=== PATIENT | male | born 1955 | race Caucasian/White ===

== ENCOUNTER 2019-09-08 10:29 | Inpatient (IN) ==
--- NOTE | 2019-09-05 22:28 | PAT Medication Instructions ---
Medication Instructions Date of Service September 05, 2019 Home Medications aspirin 81 mg tablet,delayed release 81 mg PO HS clopidogrel 75 mg tablet 75 mg PO QAM gabapentin 800 mg tablet 800 mg PO UD lisinopril 10 mg tablet 10 mg PO QAM metformin 1,000 mg tablet 1,000 mg PO BID omega-3 acid ethyl esters 1 gram capsule 2 cap PO BID atenolol 25 mg PO HS diclofenac sodium 50 mg PO QAM ASK your surgeon for instructions diclofenac sodium 50 mg PO QAM ASK your prescriber and surgeon aspirin 81 mg tablet,delayed release 81 mg PO HS clopidogrel 75 mg tablet 75 mg PO QAM STOP taking 2 weeks before surgery If surgery is within 2 weeks, stop taking as soon as possible. omega-3 acid ethyl esters 1 gram capsule 2 cap PO BID DO NOT take the morning of surgery lisinopril 10 mg tablet 10 mg PO QAM metformin 1,000 mg tablet 1,000 mg PO BID Take morning of surgery With a small sip of water, OTHERWISE NOTHING TO EAT OR DRINK AFTER MIDNIGHT: gabapentin 800 mg tablet 800 mg PO UD (if needed) Take evening before surgery gabapentin 800 mg tablet 800 mg PO UD (if needed) metformin 1,000 mg tablet 1,000 mg PO BID atenolol 25 mg PO HS Other Notes If you have any questions please call us at [phone] or [phone] or [phone] or [phone]
--- NOTE | 2019-09-06 09:14 | Anesthesiology Consultation ---
Date of Service September 06, 2019 Assessment & Plan (1) Encounter for pre-operative examination: - Recent cardiac stent: Patient s/p cardiac stent 08/02/2019 (NSTEMI). Patient with known significant CAD (hx cardiac stents x 12 total/multiple angioplastie s). Patient scheduled for Radical Retropubic Prostatectomy for prostate cancer. Patient aware of the increased risks associated with surgery given the recent cardiac stent placement and wishes to proceed with surgery as scheduled. Received cardiac clearance. Patient made aware that risks will further be discussed AM DOS. Reviewed with rupa Patel to proceed with given surgery as long as patient accepting of these increased risks. Surgeon made aware of the above. - Cardiology: 09/01/19: "considered cleared from a cardiac stand point [sic] for the upcoming procedure. Hold Plavix 5 days prior to procedure [already on hold as of PAT visit 09/06/19]." Patient remaining on ASA perioperatively. Chart Review Chart Review: Acceptable Risk for Surgery and Patient seen in Pre Admission Testing Teaching & Discussion Pre-Anesthesia Teaching/Discussion Notes: Instructed NPO after midnight before surgery,except medications with 15 cc of water. Medication instructions pr ovided according to the PAT guidelines. History Surgery Operation Date: 09/08/19 12:10 Proposed Procedures p Robotic Laparoscopic Assisted Radical Retropubic Prostatectomy, Possible Open, Possible Pelvic Lymph Node Dissection, Possible Suprapubic Tube Placement - Randy Martinez MD Height/Weight Height: 5 ft 11 in Weight: 107.8 kg Allergies Allergy/AdvReac Type Severity Reaction Status Date / Time Sulfa (Sulfonamide Allergy Mild RASH Verified 09/05/19 14:03 Antibiotics) Medications Home Medications Medication Instructions Recorded Confirmed Last Taken aspirin 81 mg tablet,delayed 81 mg PO HS 07/20/19 09/05/19 Unknown release clopidogrel 75 mg tablet 75 mg PO QAM 08/16/19 09/05/19 Unknown gabapentin 800 mg tablet 800 mg PO UD tab 08/16/19 09/05/19 Unknown lisinopril 10 mg tablet 10 mg PO QAM 08/16/19 09/05/19 Unknown metformin 1,000 mg tablet 1,000 mg PO BID 08/16/19 09/05/19 Unknown omega-3 acid ethyl esters 1 gram 2 cap PO BID cap 08/16/19 09/05/19 Unknown capsule atenolol 25 mg PO HS 09/05/19 09/05/19 Unknown diclofenac sodium 50 mg PO QAM 09/05/19 09/05/19 Unknown Past Medical History Medical History Coronary artery disease mutliple cardiac stents x 12 (most recent EARL to first obtuse marginal branch 08/02/19) Diabetes Diabetic neuropathy Hyperlipidemia Hypertension Myocardial Infarction 2005, indications for cardiac cath 08/02/19 notes "NSTEMI" Obesity Osteoarthritis Prostate cancer Exercise / Class Metabolic Activity II 4-5 Yardwork/Stairs/Walk up hill Past Family History Family History Mother , at 91yo Skin cancer History of heart valve replacement H/O heart artery stent Coronary heart disease Diabetes Father , 87yo Prostate cancer Coronary heart disease Myocardial infarction Hypertension Sister Breast cancer Son No problems noted. Son No problems noted. Son No problems noted. Grandfather (Paternal) Prostate cancer Family/Other , Paternal uncle Prostate cancer Family/Other , Paternal uncle Prostate cancer Grandfather (Maternal) Diabetes Past Surgical History Surgical History Fusion of spine L3-4 H/O eye surgery Left eye detached retina and lacerated left cornea all due to an injury H/O hand surgery LEFT SMALL FINGER TENDON REPAIR H/O heart artery stent x12 total + multiple angioplasties; most recent angioplasty and EARL x1 to first obtuse marginal branch 08/02/19 H/O umbilical hernia repair UMBILICAL History of tonsillectomy History of tooth extraction Past Anesthesia History No Hx of Anesthesia Complications and No Family Hx of Anesthesia Complications History of PONV No Hx of PONV and No Hx of Motion Sickness Social History Smoking Status: Never smoker Do You Dip or Chew Tobacco: No Hx Alcohol Use: No Hx Substance Use: No substance use type: does not use Review of Systems Patient denies chest pain, shortness of breath, dyspnea on exertion, reflux, cough, wheezing, palpitations. Physical Exam Vital Signs VITALS BP 157/96 (manual recheck 138/92) P 65 TEMP 98.4 SP02 96%RA RESP 16 PHYSICAL Full neck and c-spine range of motion. Full TMJ range of motion. TMD 3 finger breaths Mallampati Score 3 Dentition: missing side tooth, upper partial Lungs: clear throughout to auscultation Cardiac: regular rate and rhythm, no murmurs noted Spine: normal Carotid arteries: negative bruit Extremities: no edema Testing Laboratory Results 09/06/19 09:40 12 09:40 Hemoglobin A1c 7.7 % (4.5-5.6) H 12 09:40 Urine Color Yellow 12 09:40 Urine Appearance Clear (Clear) 09/06/19 09:40 Urine pH 5.0 (4.5-7.5) 09/06/19 09:40 Ur Specific [place] 1.021 (1.000-1.030) 09/06/19 09:40 Urine Protein Trace (Negative) H 09/06/19 09:40 Urine Glucose (UA) Negative (Negative) 09/06/19 09:40 Urine Ketones Negative (Negative) 09/06/19 09:40 Urine Nitrite Negative (Negative) 09/06/19 09:40 Ur Leukocyte Esterase Negative (Negative) 09/06/19 09:40 Urine WBC (Auto) 0 /hpf (0-5) 09/06/19 09:40 Urine RBC (Auto) 0-4 /hpf (0-4) 09/06/19 09:40 U Hyaline Cast (Auto) 0 /lpf (0-5) 09/06/19 09:40 U Epithel Cells (Auto) 0-5 /lpf (0-5) 09/06/19 09:40 Urine Bacteria (Auto) Negative (Negative) 09/06/19 09:40 Blood Type A Positive 09/06/19 09:40 Antibody Screen NEGATIVE 09/06/19 09:40 Electrocardiogram Date: 09/06/19 Findings: + NSR @ (64) Chest X-Ray Date: 08/02/19 Findings: + NAD Stress Test Date: 04/24/17 Type: exercise LVEF 70%. No significant ischemia/infarction. SPECT perfusion images WNL. 87% MPHR. Cardiac Catheterization Date: 08/02/19 Acute occlusion of superior branch and first obtuse marginal branch of LCx. Patient LAD, LCx, RCA stent. Chronic total occlusion RPDA branch of RCA. LVEF 55%. *Successful angioplasty and stenting of acute occlusion of the first obtuse marginal branch with EARL*
[2019-09-06 10:54] LABS: Basophils # (auto) 0.01 K/uL (0-0.2); Basophils % (auto) 0.2 %; Hematocrit (blood only) 40.7 % (42-52); Hemoglobin 14.1 g/dL (14.0-18.0); Immature Granulocytes # (auto) 0.01 K/uL (0.00-0.02); Immature Granulocytes % (auto) 0.2 %; Lymphocytes # (auto) 1.56 K/uL (1.2-3.4); Lymphocytes % (auto) 30.8 %; Mean Corpuscular Hemoglobin 31.1 pg (25-34); Mean Corpuscular Hgb Conc 34.6 g/dL (32-36); Mean Corpuscular Volume 89.6 fL (80-100); Mean Platelet Volume 9.8 fL (7.4-10.4); Monocytes # (auto) 0.48 K/uL (0.11-0.59); Monocytes % (auto) 9.5 %; Neutrophils # (auto) 2.91 K/uL (1.4-6.5); Neutrophils % (auto) 57.3 %; Platelet Count 188 K/uL (130-400); RDW Coefficient of Variation 13.3 % (11.5-14.5); RDW Standard Deviation 43.6 fL (36.4-46.3); Red Blood Count 4.54 M/uL (4.7-6.1); White Blood Count 5.07 K/uL (4.8-10.8)
[2019-09-06 11:03] LABS: BUN Creatinine Ratio 13.9 (10-20); Calcium 9.1 mg/dl (8.5-10.1); Creatinine Clr Calc Pharmacy 99.2 ml/min; Est GFR (African American) 98.9; Est GFR (Non-African American) 85.3; Potassium 4.4 mmol/L (3.5-5.1)
[2019-09-06 11:13] LABS: Appearance Urine Clear (Clear); Bacteria Urine Automated Negative (Negative); Bilirubin Urine Negative (Negative); Blood Urine Trace (Negative); Cast Urine Automated 0 /lpf (0-5); Color Urine Yellow; Epithelial Cell Urine Auto 0-5 /lpf (0-5); Glucose Urine UA Negative (Negative); Ketones Urine Negative (Negative); Leukocyte Esterase Urine Negative (Negative); Nitrite Urine Negative (Negative); Protein Urine Trace (Negative); RBC Urine Automated 0-4 /hpf (0-4); Specific Gravity Urine 1.021 (1.000-1.030); Urobilinogen Urine Negative (Negative); WBC Urine Automated 0 /hpf (0-5)
[2019-09-06 11:32] LABS: Estimated Average Glucose 174 mg/dl; Hemoglobin A1C 7.7 % (4.5-5.6)
[~2019-09-08 10:29] MED LIST: CEFAZOLIN 2000MG 2,000 MG/15 ML SYR IV SCH; HEPARIN SOD 5,000 UNIT/0.5 ML VIAL SC SCH; LR 15ML/HR IV SCH
[2019-09-08] MEDS ORDERED: fentaNYL citrate 100 MCG/2 ML VIAL ONE ×2 (11:12→14:52)
[2019-09-08] MEDS ORDERED: MIDAZOLAM HCL 1 MG/ML 2ML VIAL ONE (11:12)
[2019-09-08] MEDS ORDERED: ACETAMINOPHEN 1000 MG/100 ML IV IV ONE (11:21)
--- NOTE | 2019-09-08 12:38 | History & Physical Bridge Note ---
Date of Service September 08, 2019 History & Physical Bridge Note I have examined the patient, reviewed the History & Physical and in the interval since the performance of the History & Physical I have noted the following changes of clinical significance: no changes noted
[2019-09-08] MEDS ORDERED: BUPIVACAINE 0.5 % 5 MG/1 ML MPF 30ML VIAL ONE (12:51)
[2019-09-08] MEDS ORDERED: DEXAMETHASONE SOD INJ 4 MG/ML VIAL IV PRN (12:57)
[2019-09-08] MEDS ORDERED: FLUMAZENIL 0.1 MG/1 ML 10 ML VIAL IV PRN (12:57)
[2019-09-08] MEDS ORDERED: ONDANSETRON INJ 2 MG/ML 2 ML VIAL IV PRN ×2 (12:57→19:14)
[2019-09-08] MEDS ORDERED: METOCLOPRAMIDE HCL INJ 5 MG/ML 2 ML VIAL IV PRN (12:57)
[2019-09-08] MEDS ORDERED: fentaNYL citrate 100 MCG/2 ML VIAL IV PRN (12:57)
[2019-09-08] MEDS ORDERED: ePHEDrine sulfate 50 MG/ML AMP IV PRN (12:57)
[2019-09-08] MEDS ORDERED: HYDROmorphone INJ 2 MG/ML SYR/VIAL IV PRN (12:57)
[2019-09-08] MEDS ORDERED: ATROPINE SULFATE 0.1 MG/ML 10ML SYR IV PRN (12:57)
[2019-09-08] MEDS ORDERED: CEFAZOLIN 250 MG/ML 1 GM VIAL ONE (13:53)
[2019-09-08] MEDS ORDERED: HYDROmorphone INJ 2 MG/ML SYR/VIAL ONE (14:06)
[2019-09-08] MEDS ORDERED: ROCURONIUM BROMIDE 10 MG/ML 5 ML VIAL ONE ×4 (14:09→16:16)
[2019-09-08] MEDS ORDERED: ePHEDrine sulfate 50 MG/ML SYR ONE (14:09)
[2019-09-08] MEDS ORDERED: PROPOFOL IV EMULSION 10 MG/ML 20 ML VIAL IV ONE (14:09)
[2019-09-08] MEDS ORDERED: DEXAMETHASONE SOD INJ 4 MG/ML VIAL ONE (14:09)
[2019-09-08] MEDS ORDERED: LIDOCAINE HCL 2% 2 ML VIAL/AMP(20MG/ML) INFIL ONE (14:09)
[2019-09-08] MEDS ORDERED: PHENYLEPHRINE 100MCG/ML 5ML SYR ONE (14:09)
[2019-09-08] MEDS ORDERED: NEOSTIGMINE METHYLSULFATE 5 MG/5 ML SYR ONE (14:09)
[2019-09-08] MEDS ORDERED: GLYCOPYRROLATE 0.2 MG/ML VIAL ONE (14:09)
[2019-09-08] MEDS ORDERED: ONDANSETRON INJ 2 MG/ML 2 ML VIAL ONE (14:09)
[2019-09-08] MEDS ORDERED: LARYING-O-JET KIT (LTA) ONE (14:09)
[2019-09-08] MEDS ORDERED: FLOSEAL HEMOSTATIC MATRIX 10ML TOP ONE (17:13)
--- NOTE | 2019-09-08 17:58 | Operative Report ---
PG Post Operative Report Pre & Post Diagnosis Operation Date: 09/08/19 12:10 Pre-Op Diagnosis: Prostate Cancer Post-Op Diagnosis: Prostate Cancer I identified the patient and participated in the time-out.: Yes Procedure Operation Date: 09/08/19 12:10 Actual Procedures p Robotic Laparoscopic Assisted Radical Retropubic Prostatectomy, Bilateral Pelvic Lymph Node Dissection, Suprapubic Tube Placement(Not Applicable) - Randy Martinez MD Surgeon Randy Martinez MD Door Puller YARELY FENTON Estimated Blood Loss 250 Findings Consistent with Post-Op Diagnosis Specimens Prostate + SV, periprostatic fat, L and R pelvic nodes Description of Procedure See above I attest to the content of the Intraoperative Record and any orders documented therein. Any exceptions are noted below.
[2019-09-08 18:38] LABS: Basophils # (auto) 0.01 K/uL (0-0.2); Basophils % (auto) 0.1 %; Eosinophils # (auto) 0.01 K/uL (0-0.5); Eosinophils % (auto) 0.1 %; Hematocrit (blood only) 37.2 % (42-52); Hemoglobin 12.9 g/dL (14.0-18.0); Immature Granulocytes # (auto) 0.03 K/uL (0.00-0.02); Immature Granulocytes % (auto) 0.3 %; Lymphocytes # (auto) 1.27 K/uL (1.2-3.4); Lymphocytes % (auto) 12.6 %; Mean Corpuscular Hemoglobin 30.6 pg (25-34); Mean Corpuscular Volume 88.4 fL (80-100); Mean Platelet Volume 9.6 fL (7.4-10.4); Monocytes # (auto) 0.28 K/uL (0.11-0.59); Monocytes % (auto) 2.8 %; Neutrophils # (auto) 8.46 K/uL (1.4-6.5); Neutrophils % (auto) 84.1 %; Platelet Count 161 K/uL (130-400); RDW Coefficient of Variation 13.5 % (11.5-14.5); RDW Standard Deviation 43.4 fL (36.4-46.3); Red Blood Count 4.21 M/uL (4.7-6.1); White Blood Count 10.06 K/uL (4.8-10.8)
--- NOTE | 2019-09-08 18:39 | Anesthesiology Progress Note ---
Date of Service September 08, 2019 Anesthesia Post Procedure Vital Signs Vital Signs: Temp Pulse Pulse Resp BP Pulse Ox 09/08/19 18:30 63 16 139/81 96 09/08/19 18:20 60 23 123/66 99 09/08/19 18:10 71 13 116/76 99 09/08/19 18:00 36.4 C L 80 17 130/83 93 09/08/19 10:48 37.0 C 70 18 182/104 H 97 Transfer of Care Handoff Completed per policy Notes Mental Status: alert / awake / arousable Patient Amnestic to Procedure: Yes Nausea / Vomiting: adequately controlled Pain: adequately controlled Airway Patency, RR, SpO2: stable & adequate BP & HR: stable & adequate Hydration State: stable & adequate Anesthetic Complications: no major complications apparent and Pt Satisfied with anesthetic care Notes: The patient is awake and comfortable. His vitals are stable.
[2019-09-08 18:43] LABS: Mean Corpuscular Hgb Conc 34.7 g/dL (32-36)
[2019-09-08 18:54] LABS: BUN Creatinine Ratio 15.7 (10-20); Creatinine Clr Calc Pharmacy 95.5 ml/min; Est GFR (African American) 94.1; Est GFR (Non-African American) 81.2; Potassium 4.1 mmol/L (3.5-5.1)
[2019-09-08] MEDS ORDERED: HYDROmorphone INJ 1 MG/ML SYRINGE IV PRN ×2 (19:14)
[2019-09-08] MEDS ORDERED: OXYCODONE HCL IR 5 MG TAB (IMMEDIATE RELEASE) PO PRN (19:14)
[2019-09-08] MEDS: ACETAMINOPHEN 1,000 MG/100 ML VIAL IV SCH (20:23)
[2019-09-08] MEDS: LACTATED RINGER'S 1,000 ML IV SCH (20:25)
[2019-09-08] MEDS: CEFAZOLIN 2000MG 2,000 MG/15 ML SYR IV SCH (20:29)
[2019-09-08] MEDS: HEPARIN SOD 5,000 UNIT/0.5 ML VIAL SQ SCH (20:33)
[2019-09-08] MEDS ORDERED: PHARMACY GLYCEMIC MGMT CONSULT PRN (21:41)
[2019-09-08] MEDS ORDERED: GLUCOSE 10 TABS/TUBE PO PRN (21:45)
[2019-09-08] MEDS ORDERED: GLUCOSE 40% GEL 15 GM TUBE PO PRN (21:45)
[2019-09-08] MEDS ORDERED: GLUCAGON FOR INJ 1 MG VIAL SQ PRN (21:45)
[2019-09-08] MEDS ORDERED: LANTUS PER UNIT CHARGE SQ ONE (21:45)
[2019-09-08] MEDS ORDERED: CARBOHYDRATES FOR HYPOGLYCEMIA PO PRN (21:45)
[2019-09-08] MEDS ORDERED: DEXTROSE 50% 50 ML SYRINGE IV PRN (21:45)
[2019-09-08] MEDS ORDERED: ATENOLOL 25 MG TABLET PO SCH (22:00)
[2019-09-08] MEDS ORDERED: ASPIRIN 81 MG ECTAB PO SCH (22:00)
[2019-09-08] MEDS: GABAPENTIN 800 MG TAB PO SCH (22:20)
[2019-09-08] MEDS: INSULIN ASPART 100 UNITS/ML 3 ML PEN SC SCH (22:24)
[2019-09-08] MEDS: OXYCODONE HCL IR 5 MG TAB (IMMEDIATE RELEASE) PO PRN (22:56)
[2019-09-09] MEDS ORDERED: INSULIN ASPART 100 UNITS/ML 3 ML PEN SC SCH
[2019-09-09] MEDS: LACTATED RINGER'S 1,000 ML IV SCH ×2 (01:00→09:41)
[2019-09-09] MEDS: ACETAMINOPHEN 1,000 MG/100 ML VIAL IV SCH ×2 (03:42→11:21)
[2019-09-09] MEDS: CEFAZOLIN 2000MG 2,000 MG/15 ML SYR IV SCH (03:44)
[2019-09-09 08:01] LABS: Hematocrit (blood only) 34.1 % (42-52); Hemoglobin 11.6 g/dL (14.0-18.0); Immature Granulocytes # (auto) 0.02 K/uL (0.00-0.02); Immature Granulocytes % (auto) 0.2 %; Lymphocytes # (auto) 1.46 K/uL (1.2-3.4); Mean Corpuscular Hemoglobin 30.3 pg (25-34); Mean Platelet Volume 9.5 fL (7.4-10.4); Monocytes # (auto) 0.73 K/uL (0.11-0.59); Monocytes % (auto) 8.5 %; Neutrophils # (auto) 6.39 K/uL (1.4-6.5); Neutrophils % (auto) 74.3 %; Platelet Count 154 K/uL (130-400); RDW Coefficient of Variation 13.9 % (11.5-14.5); RDW Standard Deviation 45.1 fL (36.4-46.3); Red Blood Count 3.83 M/uL (4.7-6.1)
[2019-09-09] MEDS: OXYCODONE HCL IR 5 MG TAB (IMMEDIATE RELEASE) PO PRN ×3 (08:09→18:39)
--- NOTE | 2019-09-09 08:12 | Anesthesiology Progress Note ---
Date of Service September 09, 2019 Anesthesia Post Procedure Vital Signs Vital Signs: Temp Pulse Pulse Resp BP Pulse Ox 09/09/19 07:16 36.3 C L 66 18 117/72 94 09/09/19 05:18 98 09/09/19 04:45 36.7 C 72 16 103/65 99 09/08/19 23:19 36.8 C 79 15 127/75 96 09/08/19 22:19 78 119/73 09/08/19 21:55 36.7 C 74 16 108/70 94 09/08/19 20:56 36.7 C 72 16 120/74 94 09/08/19 20:15 36.9 C 69 138/90 95 09/08/19 19:33 36.5 C 60 16 122/76 95 09/08/19 19:00 36.8 C 68 16 127/86 95 09/08/19 18:50 65 12 135/73 100 09/08/19 18:40 36.6 C 69 14 139/86 97 09/08/19 18:30 63 16 139/81 96 09/08/19 18:20 60 23 123/66 99 09/08/19 18:10 71 13 116/76 99 09/08/19 18:00 36.4 C L 80 17 130/83 93 09/08/19 10:48 37.0 C 70 18 182/104 H 97 Pain Intensity Perineal: Pain Intensity: 3 Notes Mental Status: alert / awake / arousable and participated in evaluation Patient Amnestic to Procedure: Yes Nausea / Vomiting: adequately controlled Pain: adequately controlled Airway Patency, RR, SpO2: stable & adequate BP & HR: stable & adequate Hydration State: stable & adequate Anesthetic Complications: no major complications apparent and Pt Satisfied with anesthetic care
[2019-09-09 08:37] LABS: Calcium 8.4 mg/dl (8.5-10.1); Creatinine Clr Calc Pharmacy 94.2 ml/min; Est GFR (African American) 92.9; Est GFR (Non-African American) 80.2; Potassium 3.7 mmol/L (3.5-5.1)
[2019-09-09] MEDS ORDERED: GABAPENTIN 800 MG TAB PO SCH (09:00)
[2019-09-09] MEDS ORDERED: lisinopriL 10 MG TAB PO SCH (09:00)
[2019-09-09] MEDS: INSULIN ASPART 100 UNITS/ML 3 ML PEN SC SCH ×3 (09:20→18:27)
[2019-09-09] MEDS: HEPARIN SOD 5,000 UNIT/0.5 ML VIAL SQ SCH (09:22)
--- NOTE | 2019-09-09 09:51 | Urology Progress Note ---
Date of Service September 09, 2019 Assessment & Plan (1) Prostate cancer: A/P 64 yo male with CAP s/p RALRP, BPLND, SPT POD#1. Doing well. Advance diet and activity. Wishes to keep SPT - will DC urethral dillon today. Likely DC KATE and DC home later today. DC instructions reviewed, visits confirmed. Subjective 64 yo male POD#1 s/p RALRP, BPLND, SPT placement. He is in room with , resting comfortably. Notes he was ambulating in halls yesterday, nicholas clears without issue, comfortable, no specific c/o. Good SPT output, urine light pink. Intraop findings reviewed. Review of Systems Constitutional: no fever and no chills Eyes: no diplopia Ear, Nose, Mouth, Throat: no ear trauma Respiratory: no hemoptysis Cardiovascular: no chest pain Gastrointestinal: no nausea and no vomiting Integumentary: no acne and no boil Neurologic: no paralysis Psychiatric: no hopelessness Allergy / Immunological: no tongue swelling Physical Exam Constitutional: well developed and well nourished; no acute distress Eyes: eyes not dysmorphic ENMT: Ears: no external ear abnormality Neck: trachea midline; no anterior neck swelling Respiratory: no respiratory distress and does not use accessory muscles Cardiovascular: Vessels: radial pulses present Gastrointestinal (Abdomen): Inspection/Auscultation: abdomen not distended Percussion/Palpation: abdomen soft; abdomen nontender inc c/d/i with Dermabond, SPT and KATE in place Musculoskeletal: Head/Neck/Chest: normocephalic and neck supple Skin: normal turgor Neurologic: awake; not obtunded Psychiatric: Orientation: oriented x 3 Lymphatic: no lymphadenopathy Results & Data Vital Signs (Past 12 Hours) Vital Signs Temp Pulse Resp BP Pulse Ox 09/09/19 07:16 36.3 C L 66 18 117/72 94 09/09/19 05:18 98 09/09/19 04:45 36.7 C 72 16 103/65 99 09/08/19 23:19 36.8 C 79 15 127/75 96 09/08/19 22:19 78 119/73 09/08/19 21:55 36.7 C 74 16 108/70 94 Laboratory Results Laboratory Results - last 48 hr 09/08/19 09/08/19 09/08/19 11:46 18:05 18:19 WBC 10.06 RBC 4.21 L Hgb 12.9 L Hct 37.2 L MCV 88.4 MCH 30.6 MCHC 34.7 RDW Std Deviation 43.4 RDW Coeff of Trace 13.5 Plt Count 161 MPV 9.6 Immature Gran % (Auto) 0.3 Neut % (Auto) 84.1 Lymph % (Auto) 12.6 Early % (Auto) 2.8 Eos % (Auto) 0.1 Baso % (Auto) 0.1 Immature Gran # (Auto) 0.03 H Neut # (Auto) 8.46 H Lymph # (Auto) 1.27 Early # (Auto) 0.28 Eos # (Auto) 0.01 Baso # (Auto) 0.01 Sodium Potassium Chloride Carbon Dioxide Anion Gap BUN Creatinine Est Cr Clr Drug Dosing Est GFR ( Amer) Est GFR (Non-Af Amer) BUN/Creatinine Ratio Glucose POC Glucose 115 H 182 H Calcium 09/08/19 09/08/19 09/09/19 18:19 22:05 00:08 WBC RBC Hgb Hct MCV MCH MCHC RDW Std Deviation RDW Coeff of Trace Plt Count MPV Immature Gran % (Auto) Neut % (Auto) Lymph % (Auto) Early % (Auto) Eos % (Auto) Baso % (Auto) Immature Gran # (Auto) Neut # (Auto) Lymph # (Auto) Early # (Auto) Eos # (Auto) Baso # (Auto) Sodium 141 Potassium 4.1 Chloride 106 Carbon Dioxide 27 Anion Gap 8.0 BUN 15 Creatinine 0.98 Est Cr Clr Drug Dosing 95.5 Est GFR ( Amer) 94.1 Est GFR (Non-Af Amer) 81.2 BUN/Creatinine Ratio 15.7 Glucose 195 H POC Glucose 167 H 137 H Calcium 9.0 09/09/19 09/09/19 09/09/19 07:33 07:39 07:57 WBC 8.60 RBC 3.83 L Hgb 11.6 L Hct 34.1 L MCV 89.0 MCH 30.3 MCHC 34.0 RDW Std Deviation 45.1 RDW Coeff of Trace 13.9 Plt Count 154 MPV 9.5 Immature Gran % (Auto) 0.2 Neut % (Auto) 74.3 Lymph % (Auto) 17.0 Early % (Auto) 8.5 Eos % (Auto) 0.0 Baso % (Auto) 0.0 Immature Gran # (Auto) 0.02 Neut # (Auto) 6.39 Lymph # (Auto) 1.46 Early # (Auto) 0.73 H Eos # (Auto) 0.00 Baso # (Auto) 0.00 Sodium 140 Potassium 3.7 Chloride 106 Carbon Dioxide 29 Anion Gap 6.0 BUN 13 Creatinine 0.99 Est Cr Clr Drug Dosing 94.2 Est GFR ( Amer) 92.9 Est GFR (Non-Af Amer) 80.2 BUN/Creatinine Ratio 13.0 Glucose 139 H POC Glucose 128 H Calcium 8.4 L PG Care Time/CCT Total # of Minutes Spent Total Time Spent with Patient: Total time spent is greater than 50% in coordination of care (as documented) at patient's floor/unit and/or counseling patient:
--- NOTE | 2019-09-09 09:57 | Pharmacy Report ---
Glycemic Control Consultation - Date of Service September 09, 2019 - Scope Scope: Glycemic Pharmacist consulted for glycemic control and to write orders per [facility] inpatient glycemic control protocol - Objective Weight: 108 kg Accuchecks BSG (last 24hrs): 09/08/19 09/08/19 09/08/19 11:46 18:05 18:19 Glucose 195 H POC Glucose 115 H 182 H 09/08/19 09/09/19 09/09/19 22:05 00:08 07:39 Glucose 139 H POC Glucose 167 H 137 H 09/09/19 07:57 Glucose POC Glucose 128 H Laboratory Data (last 24hrs): 09/08/19 09/09/19 18:19 07:39 Potassium 4.1 3.7 Carbon Dioxide 27 29 Anion Gap 8.0 6.0 Creatinine 0.98 0.99 Est Cr Clr Drug Dosing 95.5 94.2 HbA1c: Hemoglobin A1c 7.7 % (4.5-5.6) H 09/06/19 09:40 - Recent Pertinent Medications Outpatient Anti-diabetic Regimen: * Metformin 500mg PO BIDM Risk Factors for Insulin Resistance: * Recent Surgery - Assessment & Plan Assessment & Plan: ASSESSMENT: * 64yo T2DM male s/p POD#1 Robotic Laparoscopic Assisted Radical Retropubic Prostatectomy. * pt with adequate outpatient control per A1c * Pt is maintained on oral antidiabetic agents as an outpatient * Oral agents are not recommended for inpatient use d/t drug interactions, changing PO intake, and difficulty titrating for acute hyper/hypoglycemia. ADA recommends re-initiating outpatient oral agents 1-2 days prior to discharge if/when appropriate if they were held on admission. * Will hold oral agents for admission and utilize SQ basal bolus insulin regimen which is the recommended regimen for inpatient glycemic control. * Will initiate weight based insulin dosing for insulin larry patient and titrate based on BSG trends. * Will start conservative since pt ordered clear liquid diet. PLAN FOR INPATIENT GLYCEMIC CONTROL: * Holding outpatient oral diabetes medications * Basal insulin * Lantus 10 units SQ HS - hold if BSG <140 * Bolus insulin * NovoLog per scale ACHS or Q6hrs while NPO * Goal Range: Low 110 mg/dL - High 140 mg/dL * Correction Factor: 20 mg/dL/unit * Nutritional / Prandial insulin per carb ratio of 1 unit per 7 grams CHO consumed * Please note that the plan above was derived based on current level of insulin resistance and hospital stress. These recommendations are appropriate for inpatient admission only. Plan of care upon discharge will need to be reassessed to avoid potential outpatient hypo/hyperglycemia. Thank you.
[2019-09-09] MEDS: GABAPENTIN 800 MG TAB PO SCH (11:22)
--- NOTE | 2019-09-09 19:47 | Operative Report ---
DATE OF OPERATION: 09/08/2019 PREOPERATIVE DIAGNOSIS: High-volume [place] 3+4 adenocarcinoma of the prostate with a PSA at diagnosis of 15. POSTOPERATIVE DIAGNOSIS: High-volume [place] 3+4 adenocarcinoma of the prostate with a PSA at diagnosis of 15. PROCEDURE: Robot-assisted laparoscopic radical retropubic prostatectomy with bilateral nerve-sparing dissection, bilateral pelvic lymph node dissection and suprapubic tube placement. SURGEON: Randy Martinez MD. ASSISTANTS: JOSSY Castañeda and JOSSY Fraser. The assistants were present throughout the case for instrument passage, retraction of tissues, suction, passage of sutures and division of sutures, exposure and general patient safety. ANESTHESIA: General anesthesia with endotracheal intubation plus local at all port sites. ESTIMATED BLOOD LOSS: 250 mL. INTRAVENOUS FLUIDS: Approximately 1500 mL of crystalloid. SPECIMENS SENT TO PATHOLOGY: Periprostatic fat, prostate plus seminal vesicles, left pelvic lymph nodes and right pelvic lymph nodes. DRAINS LEFT IN PLACE: Include an 18-Sudanese silicone catheter per urethra, 16-Sudanese suprapubic catheter with 10 mL of sterile water in the balloon, silicone and #10 KATE drain in the left lower quadrant. FINDINGS: Watertight anastomosis with excellent hemostasis. COMPLICATIONS: None. BRIEF HISTORY: Mr. Hudson is a pleasant 64-year-old male who underwent a prostate biopsy for an elevated PSA of 15. This demonstrated high-volume [place] 3+3 and 3+4 adenocarcinoma throughout the prostate gland. Staging studies were negative and prostate MRI was performed preoperatively demonstrating no evidence of extracapsular extension or neurovascular bundle invasion. After discussion of risks and benefits of various forms of intervention, the patient decided upon a robotic prostatectomy to manage his disease. He would prefer a nerve-sparing dissection, for which the MRI was obtained. Please see H and P for further details. The patient was provided with intravenous Ancef for antibiotic coverage and Tylenol for postoperative analgesia. Subcutaneous heparin and SCDs were provided for DVT prophylaxis. Informed consent was reviewed with the patient and prior to surgery. DESCRIPTION OF PROCEDURE: The patient was properly identified and brought into the operative suite after identification of appropriate consent in the chart. General anesthesia with endotracheal intubation was initiated. The patient was prepped and draped in the standard fashion for this procedure. residency director-out procedure was followed. All port sites were anesthetized with local prior to incision. At the site of the patient's previous supraumbilical incision for umbilical hernia repair, a transverse incision was made. Abdomen was entered under direct visualization using a 0-degree laparoscope via a 12 mm visual obturator. No evidence of significant intra-abdominal scarring was found to be present. Abdomen was insufflated to 15 mmHg. No evidence of any injury to the intraabdominal structures on entry to the abdomen or port placement was noted. Ports were placed for 4th arm robotic template including 2 left-sided 7 mm ports, 1 right-sided 7 mm port, a 5 mm care assistant port and a 12 mm care assistant port. The patient was placed in Trendelenburg and robot was brought in and docked. A 0-degree lens was used to drop the bladder down to the level of the pubic bone after releasing the sigmoid colonic attachments for improved mobilization of the bladder and the structures of the pelvis. After the true pelvis was entered, the prostate was defatted and periprostatic fat was sent for pathologic analysis. Endopelvic fascia was sharply entered on both sides. Dissection was carried down to the level of the apex of the prostate. A thick dorsal venous complex was skeletonized and then controlled using 0 Vicryl suture on a CT1 needle in a [id number] fashion. Nerve bundles were identified on both sides and nerve-sparing dissection was commenced at this time. A 30-degree down lens was placed and the bladder neck was placed on traction. This was able to be skeletonized down to the Looney catheter. This was then used for anterior traction on the prostate. Posterior bladder neck was divided and dropped in the midline. This dissection was carried down to the level of the vas deferens in the midline. The inferior vesicle and prostatic pedicles were taken using cold Weck clips and cold scissors. After additional plane of dissection had been opened, the seminal vesicles were able to be dissected free down to their tips. Cold scissors were used to drop the rectum in the midline up to the level of the apex of the prostate gland. Nerve-sparing dissection was then completed on both sides down to the level of the apex of the prostate. The dorsal venous bundle was divided using hot scissors. Urethra was skeletonized. The urethral stump was skeletonized and then divided using cold scissors. Rectourethralis fibers were divided and the prostate was delivered free from the confines of the pelvis. This was placed within an EndoCatch bag for retrieval at the end of the case. Attention was turned to the prostate bed where some small bleeding vessels were controlled using judicious Bovie cautery. Rectum was insufflated under saline irrigation and noted to be free of any injuries. FloSeal tissue sealant was placed within the prostate bed for additional hemostasis. Attention was then turned to the pelvic lymph node dissection on both sides. External iliac vein, pelvic sidewall and obturator nerves were used as the confines of dissection. Weck clips were used on lymphatics as necessary as well as on the small blood vessels. No evidence of any injury to the obturator nerves was appreciated throughout the case. The left-sided lymph node bundle was marked using an additional Weck clip and these were placed within the second EndoCatch bag for retrieval at the end of the case. After this was complete, additional FloSeal tissue sealant was placed within the obturator fossa for additional hemostasis. Attention was then turned to the anastomosis. Using a double armed V-Loc suture, a circumferential running anastomosis was performed between the excellent urethral stump and a good-sized bladder neck. Looney catheter was noted to easily and preferentially enter the bladder throughout the closure. After this was complete, 10 mL of sterile water were placed in the balloon and bladder was distended with greater than 120 mL and anastomosis was appreciated to be watertight. A small supraumbilical incision was then made at this time and a trocar kit was used to advance a suprapubic tube kit into the abdomen and then into the anterior wall of the bladder. A 16-Sudanese silicone catheter was used as a suprapubic tube and placed within the bladder after removal of the obturator followed by the peel-away sheath. 10 mL of sterile water were placed in this balloon as well. The urethral catheter was replaced with an 18-Sudanese silicone catheter, which was easily seen entering the bladder with 10 mL of sterile water in the balloon. Catheters were irrigated with isovolumic return from one catheter and out the other. Both catheters were placed to gravity drainage. Fourth arm was then removed and a #10 KATE drain was brought in via the fourth arm port. This was placed within the confines of the pelvis while avoiding placing it directly over the anastomosis. At this point, robotic instruments were removed from the abdomen and the robot was dedocked. Camera was brought in via the 12 mm care assistant port and the strings to the EndoCatch bags were brought in via the supraumbilical incision. This was then enlarged sufficiently to allow for removal of the specimens without difficulties. Excess carbon dioxide gas was removed from the abdomen and supraumbilical incision was closed using an 0 Prolene suture given the patient's previous history of umbilical hernia. A 2-0 silk was used to secure the suprapubic tube and KATE drain in place. 4-0 Monocryl was used at the level of the skin at all incision sites followed by Dermabond dressings. Catheters were placed to gravity drainage and KATE to bulb suction. Anesthesia was reversed. The patient was transferred to the recovery room in stable condition. FOLLOWUP CARE: The patient will be admitted to the floor for standard postoperative management. I attest to the content of the Intraoperative Record and any orders documented therein. Any exception s are noted below.
[2019-09-09] MEDS ORDERED: LANTUS PER UNIT CHARGE SQ SCH (21:00)
== END 2019-09-09 19:19 | disposition home or self-care (01) | DRG 714 ==
LOC: ASU 10:29 → 3W 17:47

== ENCOUNTER 2021-12-16 07:39 | Inpatient (IN) ==
--- NOTE | 2021-11-11 15:14 | PAT Medication Instructions ---
Medication Instructions Date of Service November 11, 2021 Home Medications aspirin 81 mg tablet,delayed release 81 mg PO HS clopidogrel 75 mg tablet (Plavix) 75 mg PO QAM lisinopril 10 mg tablet 10 mg PO QAM metformin 1,000 mg tablet 1,000 mg PO BID omega-3 acid ethyl esters 1 gram capsule (Lovaza) 2 cap PO BID atenolol 25 mg tablet 25 mg PO HS diclofenac sodium 50 mg tablet,delayed release 75 mg PO BID gabapentin 800 mg tablet 800 mg PO 5XD cholecalciferol (vitamin D3) 125 mcg (5,000 unit) tablet (Vitamin D3) 125 mcg PO QAM coenzyme Q10 100 mg capsule (Co Q-10) 100 mg PO QAM fenofibrate nanocrystallized 145 mg tablet 145 mg PO QAM magnesium oxide 400 mg PO QAM methocarbamol 750 mg tablet 750 mg PO QID rosuvastatin 20 mg tablet (Crestor) 20 mg PO QAM turmeric 500 mg-black pepper extract 3 mg capsule 1 cap PO QAM vitamin E 400 unit capsule 400 unit PO QAM zinc 50 mg capsule 50 mg PO QAM Continue as directed gabapentin 800 mg tablet 800 mg PO 5XD ASK your surgeon for instructions diclofenac sodium 50 mg tablet,delayed release 75 mg PO BID ASK your prescriber and surgeon clopidogrel 75 mg tablet (Plavix) 75 mg PO QAM STOP taking 2 weeks before surgery omega-3 acid ethyl esters 1 gram capsule (Lovaza) 2 cap PO BID coenzyme Q10 100 mg capsule (Co Q-10) 100 mg PO QAM turmeric 500 mg-black pepper extract 3 mg capsule 1 cap PO QAM vitamin E 400 unit capsule 400 unit PO QAM STOP taking 48 hours before surgery fenofibrate nanocrystallized 145 mg tablet 145 mg PO QAM DO NOT take the morning of surgery lisinopril 10 mg tablet 10 mg PO QAM metformin 1,000 mg tablet 1,000 mg PO BID cholecalciferol (vitamin D3) 125 mcg (5,000 unit) tablet (Vitamin D3) 125 mcg PO QAM magnesium oxide 400 mg PO QAM methocarbamol 750 mg tablet 750 mg PO QID zinc 50 mg capsule 50 mg PO QAM Take morning of surgery With a small sip of water, OTHERWISE NOTHING TO EAT OR DRINK AFTER MIDNIGHT: aspirin 81 mg tablet,delayed release 81 mg PO HS (unless surgeon directs otherwise) rosuvastatin 20 mg tablet (Crestor) 20 mg PO QAM Take evening before surgery metformin 1,000 mg tablet 1,000 mg PO BID atenolol 25 mg tablet 25 mg PO HS methocarbamol 750 mg tablet 750 mg PO QID Other Notes If you have any questions please call us at [phone] or [phone] or [phone] or [phone]
--- NOTE | 2021-11-12 11:47 | Anesthesiology Consultation ---
Date of Service November 12, 2021 Assessment & Plan (1) Encounter for pre-operative examination: - pending pre-op labs. There was discrepancy in listed timing of drawn labs and will need repeated. Patient contacted and he plans to return to [facility] 10/2020 as will be in [place] for medical clearance appointment. Inspector Soldering and lab aware, first set of labs removed from chart and billing cancelled. - check BSG am DOS. - cardiology clearance, 11/22. - surgeon ordered medical clearance, 11/18. - COVID screening: Per assessment on 11/12/2021: Travel screen negative, no known COVID-19 positive contacts or current COVID-19 related symptoms in past 2 weeks. Patient vaccinated. Surgeon arranging preop COVID testing, scheduled 11/29/2021. Awaiting results. Chart Review Chart Review: Pending: Refer to Additional Notes / Consult section and Patient seen in Pre Admission Testing Teaching & Discussion Pre-Anesthesia Teaching/Discussion Notes: Instructed NPO after midnight before surgery, except medications with 15 cc of water. Medication instructions provided according to the [facility] guidelines. History Surgery Operation Date: 12/03/21 07:45 Proposed Procedures p L2-L3 and L3-L4 Decompression Fusion L4-L5 Hardware Removal Spinal Cord Monitoring - Francesco Allen, Height/Weight Height: 5 ft 11 in Weight: 103.5 kg Allergies Allergy/AdvReac Type Severity Reaction Status Date / Time Sulfa (Sulfonamide Allergy Mild RASH Verified 11/11/21 11:21 Antibiotics) Medications Home Medications Medication Instructions Recorded Confirmed Last Taken aspirin 81 mg tablet,delayed 81 mg PO HS 07/20/19 11/11/21 09/02/19 release clopidogrel 75 mg tablet (Plavix) 75 mg PO QAM 08/16/19 11/11/21 09/02/19 lisinopril 10 mg tablet 10 mg PO QAM 08/16/19 11/11/21 09/06/19 metformin 1,000 mg tablet 1,000 mg PO BID 08/16/19 11/11/21 09/06/19 omega-3 acid ethyl esters 1 gram 2 cap PO BID cap 08/16/19 11/11/21 09/02/19 capsule (Lovaza) atenolol 25 mg tablet 25 mg PO HS 09/05/19 11/11/21 09/02/19 diclofenac sodium 50 mg 75 mg PO BID 09/05/19 11/11/21 1 Week Ago tablet,delayed release ~09/01/19 gabapentin 800 mg tablet 800 mg PO 5XD 09/08/19 11/11/21 09/05/19 cholecalciferol (vitamin D3) 125 125 mcg PO QAM 11/11/21 11/11/21 Unknown mcg (5,000 unit) tablet (Vitamin D3) coenzyme Q10 100 mg capsule (Co 100 mg PO QAM 11/11/21 11/11/21 Unknown Q-10) fenofibrate nanocrystallized 145 145 mg PO QAM 11/11/21 11/11/21 Unknown mg tablet magnesium oxide 400 mg PO QAM 11/11/21 11/11/21 Unknown methocarbamol 750 mg tablet 750 mg PO QID 11/11/21 11/11/21 Unknown rosuvastatin 20 mg tablet (Crestor) 20 mg PO QAM 11/11/21 11/11/21 Unknown turmeric 500 mg-black pepper 1 cap PO QAM 11/11/21 11/11/21 Unknown extract 3 mg capsule vitamin E 400 unit capsule 400 unit PO QAM 11/11/21 11/11/21 Unknown zinc 50 mg capsule 50 mg PO QAM 11/11/21 11/11/21 Unknown Past Medical History Medical History (Updated 11/12/21 @ 12:17 by Sharon Joya PA-C) Coronary artery disease mutliple cardiac stents x 12 (most recent EARL to first obtuse marginal branch 08/02/19) Diabetes NIDDM > not well controlled at present per pt Diabetic neuropathy feet GERD (gastroesophageal reflux disease) on occasion History of COVID-Sep 11, 2021 tested at [facility] > fever,, chills, lethargic, loss of smell and taste, lasted 3 days Hyperlipidemia Hypertension controlled, stable per pt Impotence Myocardial Infarction 2005, indications for cardiac cath 08/02/19 notes "NSTEMI" Obesity Osteoarthritis Prostate cancer robotic removal > Aug 2019 > no chemo or radiation Sleep apnea did not pursue treatment Urinary incontinence Patient denies h/o stroke, seizures, blood clots or blood transfusions. Exercise / Class Metabolic Activity II 4-5 Yardwork/Stairs/Walk up hill (denies CP or SOB with 1 FOS) Past Family History Family History Mother , at 91yo Skin cancer History of heart valve replacement H/O heart artery stent Coronary heart disease Diabetes Father , 87yo Prostate cancer Coronary heart disease Myocardial infarction Hypertension Sister Breast cancer Son No problems noted. Son No problems noted. Son No problems noted. Grandfather (Paternal) Prostate cancer Family/Other , Paternal uncle Prostate cancer Family/Other , Paternal uncle Prostate cancer Grandfather (Maternal) Diabetes Past Surgical History Surgical History (Updated 11/12/21 @ 11:40 by Sharon Joya PA-C) Fusion of spine L3-4 H/O eye surgery Left eye detached retina and lacerated left cornea all due to an injury H/O hand surgery LEFT SMALL FINGER TENDON REPAIR H/O heart artery stent x12 total + multiple angioplasties; most recent angioplasty and EARL x1 to first obtuse marginal branch 08/02/19 H/O umbilical hernia repair UMBILICAL History of prostatectomy 09/08/2019: Grade 3 view, MAC#3, ETT#8.0. No postop issues per anesthesia progress note. History of tonsillectomy History of tooth extraction Past Anesthesia History No Hx of Anesthesia Complications and No Family Hx of Anesthesia Complications History of PONV No Hx of PONV and No Hx of Motion Sickness Social History Smoking Status: Never smoker Do You Dip or Chew Tobacco: No Hx Alcohol Use: No Hx Substance Use: No substance use type: does not use Review of Systems Patient denies chest pain, shortness of breath, dyspnea on exertion, fever, chills, cough, wheezing, or palpitations. Physical Exam Vital Signs Vitals BP 144/87 P 68 TEMP 98.4 SP02 96% on RA RESP 16 Physical Full cervical extension range of motion without pain Full TMJ range of motion TMD 3.5 finger breaths Mallampati Score 3 Dentition: intact, missing front left upper with plate; missing upper and lower back bilat; denies chipped or loose teeth, caps/crowns Lungs: normal respiratory effort. Clear throughout to auscultation, no adventitious breath sounds Cardiac: regular rate and rhythm, no murmurs noted Carotid arteries: negative bruit bilat Extremities: no distal extremity edema Testing Electrocardiogram Date: 11/12/21 NSR, rate 68 bpm Chest X-Ray Date: 11/12/21 FINDINGS: No lines and tubes are seen. The cardiomediastinal silhouette is normal. The lungs are clear. No evidence of pleural effusion or pneumothorax. IMPRESSION: No acute chest disease. Stress Test Date: 04/24/17 EF 70% Normal LV wall motion No significant ischemia Low risk study MPHR 87% Cardiac Catheterization Date: 09/06/19 Left main: angiographically normal LAD: 50-60% stenosis in stent restenosis Cx: 50-60% stenosis, upper branch 100% occlusion RCA: 99-100% chronic total occlusion Subsequent successful angioplasty and stenting of acute occlusion of the right obtuse marginal branch with a EARL
--- NOTE | 2021-12-02 16:12 | Communication Note ---
Date of Service: December 02, [address] Drake Trujillo as per anesthesiology consultation and plan is to fax optimization note with his addendum to PCP for further diabetic control, he advised nothing further needed from cardiac standpoint. Form completed, to be faxed to PCP.
[~2021-12-16 07:39] MED LIST changes: +ACETAMINOPHEN 500 MG TAB PO SCH; -CEFAZOLIN 2000MG 2,000 MG/15 ML SYR IV SCH; +CeleBREX 200 MG CAP PO SCH; +GABAPENTIN 300 MG CAP PO SCH; -HEPARIN SOD 5,000 UNIT/0.5 ML VIAL SC SCH; +ceFAZolin 2000MG 2,000 MG/15 ML SYR IV SCH
[2021-12-16] MEDS ORDERED: DEXAMETHASONE SOD INJ 4 MG/ML VIAL ONE (08:29)
[2021-12-16] MEDS ORDERED: GLYCOPYRROLATE 0.2 MG/ML VIAL ONE (08:29)
[2021-12-16] MEDS ORDERED: PROPOFOL IV EMULSION 10 MG/ML 20 ML VIAL IV ONE (08:29)
[2021-12-16] MEDS ORDERED: NEOSTIGMINE METHYLSULFATE 1 MG/ML 10ML VIAL ONE (08:29)
[2021-12-16] MEDS ORDERED: ONDANSETRON INJ 2 MG/ML 2 ML VIAL ONE (08:29)
[2021-12-16] MEDS ORDERED: LIDOCAINE 2% 2 ML VIAL/AMP(20MG/ML) INFIL ONE (08:29)
[2021-12-16] MEDS ORDERED: fentaNYL citrate 100 MCG/2 ML VIAL ONE (08:30)
[2021-12-16] MEDS ORDERED: MIDAZOLAM HCL 1 MG/ML 2ML VIAL ONE (08:30)
[2021-12-16] MEDS ORDERED: ePHEDrine sulfate 50 MG/ML AMP IV PRN (08:57)
[2021-12-16] MEDS ORDERED: fentaNYL citrate 100 MCG/2 ML VIAL IV PRN (08:57)
[2021-12-16] MEDS ORDERED: ATROPINE SULFATE 0.1 MG/ML 10ML SYR IV PRN (08:57)
[2021-12-16] MEDS ORDERED: NALOXONE HCL 0.4 MG/1 ML VIAL/CARP IV PRN ×2 (08:57→13:23)
[2021-12-16] MEDS ORDERED: FLUMAZENIL 0.1 MG/1 ML 10 ML VIAL IV PRN (08:57)
[2021-12-16] MEDS ORDERED: PROMETHAZINE HCL 12.5 MG in SODIUM CHLORIDE 0.9% 50 ML IV PRN ×2 (08:57→13:23)
[2021-12-16] MEDS ORDERED: ONDANSETRON INJ 2 MG/ML 2 ML VIAL IV PRN ×2 (08:57→13:23)
[2021-12-16] MEDS ORDERED: HYDROmorphone INJ 1 MG/ML SYRINGE IV PRN ×2 (08:57→13:23)
[2021-12-16] MEDS ORDERED: LABETALOL HCL IV 5 MG/ML 20ML IV PRN (08:57)
--- NOTE | 2021-12-16 09:05 | History & Physical Bridge Note ---
Date of Service December 16, 2021 History & Physical Bridge Note I have examined the patient, reviewed the History & Physical and in the interval since the performance of the History & Physical I have noted the following changes of clinical significance: no changes noted
--- NOTE | 2021-12-16 09:06 | History & Physical Report ---
Date of Service December 16, 2021 Assessment & Plan (1) Neurogenic claudication due to lumbar spinal stenosis: Plan: Lumbar decompression and fusion L2-L3 L3-L4 hardware removal L4-L5 History of Present Illness Chief Complaint: Back and leg pain Primary Care Provider: Julius Sy 66-year-old male who presents with chronic persistent back and leg pain after failing course of nonoperative care is here for surgical invention. Allergies Allergy/AdvReac Type Severity Reaction Status Date / Time Sulfa (Sulfonamide Allergy Mild RASH Verified 12/16/21 07:49 Antibiotics) Home Medications Medication Instructions Recorded Confirmed Type aspirin 81 mg tablet,delayed 81 mg PO HS 07/20/19 12/16/21 History release clopidogrel 75 mg tablet (Plavix) 75 mg PO QAM 08/16/19 12/16/21 History lisinopril 10 mg tablet 10 mg PO QAM 08/16/19 12/16/21 History metformin 1,000 mg tablet 1,000 mg PO BID 08/16/19 12/16/21 History atenolol 25 mg tablet 25 mg PO HS 09/05/19 12/16/21 History diclofenac sodium 50 mg 75 mg PO BID 09/05/19 12/16/21 History tablet,delayed release gabapentin 800 mg tablet 800 mg PO 5XD 09/08/19 12/16/21 History cholecalciferol (vitamin D3) 125 125 mcg PO QAM 11/11/21 12/16/21 History mcg (5,000 unit) tablet (Vitamin D3) coenzyme Q10 100 mg capsule (Co 100 mg PO QAM 11/11/21 12/16/21 History Q-10) fenofibrate nanocrystallized 145 145 mg PO QAM 11/11/21 12/16/21 History mg tablet magnesium oxide 400 mg PO QAM 11/11/21 12/16/21 History methocarbamol 750 mg tablet 750 mg PO QID 11/11/21 12/16/21 History rosuvastatin 20 mg tablet (Crestor) 20 mg PO QAM 11/11/21 12/16/21 History turmeric 500 mg-black pepper 1 cap PO QAM 11/11/21 12/16/21 History extract 3 mg capsule vitamin E 400 unit capsule 400 unit PO QAM 11/11/21 12/16/21 History zinc 50 mg capsule 50 mg PO QAM 11/11/21 12/16/21 History Past Med/Surg History Medical History (Updated 12/16/21 @ 09:06 by Francesco Allen, ) Coronary artery disease mutliple cardiac stents x 12 (most recent EARL to first obtuse marginal branch 08/02/19) Diabetes NIDDM > not well controlled at present per pt Diabetic neuropathy feet GERD (gastroesophageal reflux disease) on occasion History of COVID-Sep 11, 2021 tested at [facility] > fever,, chills, lethargic, loss of smell and taste, lasted 3 days Hyperlipidemia Hypertension controlled, stable per pt Impotence Myocardial Infarction 2005, indications for cardiac cath 08/02/19 notes "NSTEMI" Obesity Osteoarthritis Prostate cancer robotic removal > Aug 2019 > no chemo or radiation Sleep apnea did not pursue treatment Urinary incontinence Surgical History Fusion of spine L3-4 H/O eye surgery Left eye detached retina and lacerated left cornea all due to an injury H/O hand surgery LEFT SMALL FINGER TENDON REPAIR H/O heart artery stent x12 total + multiple angioplasties; most recent angioplasty and EARL x1 to first obtuse marginal branch 08/02/19 H/O umbilical hernia repair UMBILICAL History of prostatectomy 09/08/2019: Grade 3 view, MAC#3, ETT#8.0. No postop issues per anesthesia progress note. History of tonsillectomy History of tooth extraction Family History Mother , at 91yo Skin cancer History of heart valve replacement H/O heart artery stent Coronary heart disease Diabetes Father , 87yo Prostate cancer Coronary heart disease Myocardial infarction Hypertension Sister Breast cancer Son No problems noted. Son No problems noted. Son No problems noted. Grandfather (Paternal) Prostate cancer Family/Other , Paternal uncle Prostate cancer Family/Other , Paternal uncle Prostate cancer Grandfather (Maternal) Diabetes Social History Smoking Status: Never smoker Second Hand Exposure: No; Do You Dip or Chew Tobacco: No; Tobacco Cessation Education Requested by Patient: No Hx Alcohol Use: No Hx Substance Use: No Preferred Language: Nigerien Communication Ability: Effective Visual Impairment: No Limitations Hearing Ability: Normal Stationary Fireman Required: No Beliefs That Will Affect Care: None marital status: Current Living Situation: Spouse current occupational status: employed current occupation: [employer] Other Information That Helps Us Care for You: No Feels Safe at Home: Yes Safety Concerns: Feels Safe At This Time caffeine: Yes (1 cup/day) during the past year weight has: remained stable Assistive Devices: Glasses Assistive Devices Comment: partial Physical Exam Physical Exam: Patient is alert and oriented Heart regular rate and rhythm Lungs clear Results & Data ([facility]) Vital Signs (Past 12 Hours) Vital Signs Temp Pulse Resp BP Pulse Ox 12/16/21 08:03 36.8 C 62 20 171/90 H 95
[2021-12-16] MEDS ORDERED: BUPIVACAINE/EPINEPHRINE 0.25% 1:200,000 30 ML VIAL ONE (09:25)
[2021-12-16] MEDS ORDERED: ceFAZolin 330 MG/ML 1 GM VIAL ONE (09:25)
[2021-12-16] MEDS ORDERED: ePHEDrine sulfate 50 MG/ML SYR ONE (10:21)
[2021-12-16] MEDS ORDERED: ROCURONIUM BROMIDE 10 MG/ML 5 ML VIAL IV ONE ×2 (10:21→10:36)
[2021-12-16] MEDS ORDERED: SUCCINYLCHOLINE 100MG/5ML SYR IV ONE (10:36)
[2021-12-16] MEDS ORDERED: HYDROmorphone INJ 2 MG/ML SYR/VIAL ONE (10:46)
[2021-12-16] MEDS ORDERED: ALBUMIN HUMAN 5% 12.5 GM/250 ML VIAL IV ONE (10:57)
[2021-12-16] MEDS ORDERED: FLOSEAL HEMOSTATIC MATRIX 10ML TOP ONE (11:02)
--- NOTE | 2021-12-16 12:15 | Operative Report ---
Post Operative Report Pre & Post Diagnosis Operation Date: 12/03/21 07:00 <No data on this case meets the specified criteria> Operation Date: 12/16/21 09:05 Pre-Op Diagnosis: Neurogenic claudication due to lumbar spinal stenosis Post-Op Diagnosis: Neurogenic claudication due to lumbar spinal stenosis I identified the patient and participated in the time-out.: Yes Procedure Operation Date: 12/03/21 07:00 <No data on this case meets the specified criteria> Operation Date: 12/16/21 09:05 Actual Procedures #1 removal of posterior instrumentation L4-L5. #2 exploration of fusion L4-5 #3 lumbar decompression with bilateral medial facetectomies and foraminotomies L2- L3 L3-4. #4 posterior spinal fusion L2-L3 L3-4. #5 placement posterior instrumentation L2-L3 L3-L4. #6 interbody fusion L3-L4. #7 placement of titanium cage 13 x 26 mm at L3-L4. #8 placement locally harvested morselized autograft in the posterior gutters. #9 placement I factor combined with V toss in the interbody space and posterior lateral gutters. Surgeon Francesco Allen, DO Belt Builder Helper Orquidea Alberts Estimated Blood Loss 750 Findings See Below The patient is 5 foot 11 inches tall weighing over 101 kg with a BMI in excess of 31. This combined with an EBL of greater than 750 cc created significant technical difficulty adding at least 50% increase to the operative time. Specimens None Indications This is a 66-year-old male who presents with significant advanced severe radicu lopathy. After failed extensive course of nonoperative care is here for the mesh procedure. Description of Procedure Patient was met with identified informed consent obtained. Patient was then taken to the operative suite underwent intubation placed in a prone position the Oneal table top of the Arvind frame. All bony prominences well-padded eyes inspected to ensure no external pressure placed upon the. This point the lumbar spine was prepped and draped in a sterile fashion. Sharp dissection with the assistance of Bovie cautery was performed down to and exposing the lamina and transverse processes of L to L3 and instrumentation at L4-L5 bilaterally. And proceeded move the hardware bilaterally. I was unable to successfully remove the L5 pedicle screws bilaterally they demonstrated titanium bony ingrowth and were unable to be removed without significant blood loss. Subsequently elected to retain the screws in place. And then performed complete laminectomy of L3 and L2 including bilateral medial facetectomies and foraminotomies addressing severe spinal stenosis. Pedicle screws then placed in L2-L3-L4 bilaterally with assistance of fluoroscopy and potential chino placed. By way of a transfemoral approach on the right a complete discectomy of L3-L4 was performed endplates curetted to subcortical any bone and a 13 x 26 mm titanium cage filled with I factor tapped in position. The rods then compressed locked in final position bilaterally. The transverse processes of L2-L3-L4 burred to subcortically bone. I factor combined with Vitoss and locally harvested morselized autograft was placed in the posterior gutters. 15 round KATE drain inserted. The incision was then closed with 1 Vicryl in the fascia 2-0 Vicryl subcutaneously and 4 Monocryl for final skin closure. Steri-Strips dressings placed. Patient waken taken PACU stable condition. Please note spinal cord monitoring was utilized at the procedure no changes noted. Lastly Orquidea Alberts was present at the entire surgery and while the patient positioning complex portions of the surgery and final skin closure. I attest to the content of the Intraoperative Record and any orders documented therein. Any exceptions are noted below.
--- NOTE | 2021-12-16 13:04 | Fluoroscopy Report ---
FL lumbar spine 2-3V CLINICAL HISTORY: L4-5 HR L2-4 DFI COMPARISON STUDY: None FLUOROSCOPY TIME: 20 seconds. FLUOROSCOPIC IMAGES: 2 FINDINGS: AP and lateral C-arm images were obtained with the patient is status post interpedicular sc rew and chino fixation from L3 through L5. Disc spacers seen at L4-5. Additional screws are seen at S1 with disc spacer at L5-S1. IMPRESSION: Status post internal fixation. ACT 112: Negative or not required by law. Electronically signed by: Robert Quiñonez M.D. 12/16/2021 1:03 PM
[2021-12-16] MEDS ORDERED: SODIUM CHLORIDE 0.9% 1000ML 1,000 ML IV SCH (13:23)
[2021-12-16] MEDS ORDERED: ACETAMINOPHEN 1,000 MG/100 ML VIAL IV PRN (13:23)
[2021-12-16] MEDS ORDERED: oxyCODONE HCL IR 5 MG TAB (IMMEDIATE RELEASE) PO PRN ×2 (13:23→16:36)
[2021-12-16] MEDS ORDERED: diphenhydrAMINE Capsule 25 MG CAP PO PRN (13:23)
[2021-12-16] MEDS ORDERED: bisacodyL 10 MG SUPP PR PRN (13:23)
[2021-12-16] MEDS ORDERED: LORazepam 0.5 MG TAB PO PRN (13:23)
[2021-12-16] MEDS ORDERED: ONDANSETRON 4 MG OD TAB PO PRN (13:23)
[2021-12-16] MEDS ORDERED: HYDROmorphone INJ 0.5 MG/0.5 ML SYR IV PRN ×2 (13:23→16:36)
[2021-12-16] MEDS ORDERED: SOD PHOSPHATE/SOD BIPHOSPHATE ENEMA 132 ML BTL PR PRN (13:23)
[2021-12-16] MEDS ORDERED: traMADol HCL 50 MG TABLET PO PRN (13:23)
[2021-12-16] MEDS ORDERED: LORazepam 2 MG/1 ML VIAL IV PRN (13:23)
[2021-12-16] MEDS ORDERED: DO NOT ADMINISTER PNEUMOCOCCAL VACCINE PRN (13:23)
[2021-12-16] MEDS ORDERED: ALUMINUM/MAGNESIUM SUSP 30 ML UDC PO PRN (13:23)
[2021-12-16] MEDS ORDERED: FAMOTIDINE 20 MG TAB PO PRN (13:23)
[2021-12-16] MEDS ORDERED: METOCLOPRAMIDE HCL INJ 5 MG/ML 2 ML VIAL IV PRN (13:23)
[2021-12-16] MEDS ORDERED: ACETAMINOPHEN 500 MG TAB PO PRN (13:23)
[2021-12-16] MEDS ORDERED: DO NOT ADMINISTER FLU VACCINE PRN (13:23)
[2021-12-16] MEDS ORDERED: hydrOXYzine HCl 25 MG TAB PO PRN (13:23)
[2021-12-16] MEDS ORDERED: MAGNESIUM HYDROXIDE SUSP 30 ML UDC PO PRN (13:23)
[2021-12-16] MEDS ORDERED: PHARMACY GLYCEMIC MGMT CONSULT PRN (13:23)
--- NOTE | 2021-12-16 13:28 | Anesthesiology Progress Note ---
Date of Service December 16, 2021 Anesthesia Post Procedure Vital Signs Vital Signs: Temp Pulse Pulse Resp BP Pulse Ox 12/16/21 13:20 36.9 C 79 16 154/85 H 97 12/16/21 13:10 74 16 145/88 H 98 12/16/21 13:00 76 16 132/84 96 12/16/21 12:50 74 16 140/74 98 12/16/21 12:40 71 15 143/79 H 98 12/16/21 12:32 36.3 C L 77 15 146/84 H 92 12/16/21 08:03 36.8 C 62 20 171/90 H 95 Transfer of Care Handoff Completed per policy Notes Mental Status: alert / awake / arousable Patient Amnestic to Procedure: Yes Nausea / Vomiting: adequately controlled Pain: adequately controlled Airway Patency, RR, SpO2: stable & adequate BP & HR: stable & adequate Hydration State: stable & adequate Anesthetic Complications: no major complications apparent
[2021-12-16] MEDS ORDERED: NovoLIN-N (NPH) PER UNIT CHARGE SQ ONE (14:15)
[2021-12-16] MEDS ORDERED: INSULIN HUMAN NPH SC ONE (14:15)
[2021-12-16] MEDS ORDERED: CARBOHYDRATES FOR HYPOGLYCEMIA PO PRN (14:15)
[2021-12-16] MEDS ORDERED: INSULIN ASPART PER UNIT SC SCH (14:15)
[2021-12-16] MEDS ORDERED: GLUCOSE 40% GEL 15 GM TUBE PO PRN (14:15)
[2021-12-16] MEDS ORDERED: GLUCAGON FOR INJ 1 MG VIAL IM PRN (14:15)
[2021-12-16] MEDS ORDERED: GLUCOSE 10 TABS/TUBE PO PRN (14:15)
[2021-12-16] MEDS ORDERED: DEXTROSE 50% 50 ML SYRINGE IV PRN (14:15)
--- NOTE | 2021-12-16 14:17 | Pharmacy Report ---
Pharmacy Glycemic Short Note 2 - Date of Service December 16, 2021 - Glycemic Short BSG Results (Last 24 hours): 12/16/21 12/16/21 08:17 12:34 POC Glucose 182 H 231 H OUTPATIENT ANTIDIABETIC REGIMEN: * Metformin 1000 mg PO BIDM * HbA1c: 9.6% (11/18/21) ASSESSMENT: * DS is a 66 year old male POD #0 s/p L2-4 decompression/fusion * Received 4 mg IV dexamethasone in OR * Preoperative BSG of 182, postoperative BSG of 231 mg/dL, HbA1c of 9.6% suggests poor outpatient glycemic control * Will use aggressive Novolog parameters and give dose of NPH now to help cover steroids * Dexamethasone 6 mg IV daily ordered x 3 days, will need to reassess NPH tomorrow PLAN FOR INPATIENT GLYCEMIC CONTROL: * Hold outpatient oral diabetes medications * Basal insulin * NPH 30 units SC x 1 now to cover dexamethasone 4 mg IV x 1 in OR * Reassess in AM * Bolus insulin * NovoLog per scale ACHS or Q6hrs while NPO * Goal Range: Low 110 mg/dL - High 140 mg/dL * Correction Factor: 20 mg/dL/unit * Nutritional / Prandial insulin per carb ratio of 1 unit per 6 grams CHO consumed
--- NOTE | 2021-12-16 16:03 | Hospitalist Consultation ---
Date of Consultation December 16, 2021 Assessment & Plan (1) Status post lumbar spine surgery for decompression of spinal cord: - POD#0 lumbar decompression fusion by Dr. Allen - Pain control, pre/post op antibiotics as per primary service - Add stool softeners if not already done so to avoid constipation - Cap IVF once tolerating oral intake - Dillon catheter can be maintained today, removal tomorrow - Activity per Dr. Allen, recommend PT/OT eval tomorrow - Recommend utilizing incentive spirometer q1h while awake for atelectasis/pna prevention (2) Diabetes mellitus type 2, uncontrolled: - Recently started on Lantus 10 units at HS by PCP as of last note 12/12/21 - Takes Metformin at home which has been placed on hold - Add sliding scale insulin w/ meals and accuchecks AC and HS - Glycemic management consult will be ordered as pt will be receiving IV Decadron - Diabetic diet (3) Essential hypertension: - May resume Atenolol and Lisinopril POD#1 (4) Mixed hyperlipidemia: - Continue Crestor, CoQ10, and Fenofibrate (5) Diabetic neuropathy: - Resume Gabapentin (6) Prostate cancer: - In remission, s/p prostatectomy, no chemo or radiation (7) History of myocardial infarction: - NSTEMI prompting cardiac catheterization in Jul 2019 - Angioplasty and EARL of the obtuse marginal branch performed - On ASA and Plavix, would recommend resumption of both 48 hours post operatively once hemostasis ensured Recommendations as outlined above. Thank you for allowing us to participate in the care of your patient, will follow along. Above plan of care to be d/w Dr. Samayoa. Supervising Physician Co-Signing Physician Notes Patient seen and examined, chart reviewed, case discussed with SHERLY Cleaning and I agree with the assessment and plan as above except as otherwise noted General: A&Ox3. NAD. Cooperative. HEENT: Atraumatic, normocephalic. Vision/hearing grossly intact. Pulm: CTAB A&P. -wheezes, -rales, -rhonchi. Symmetrical chest rise. No increase in work of breathing. No respiratory distress. Cardiac: RRR, -mrg. Radial pulses intact and symmetrical. Labs and images reviewed Patient seen at bedside. Reports had some postop back pain, otherwise feels he is doing extremely well. Is pleasant, conversive, in no acute distress. Patient does report that he has a history of 20 stents on dual antiplatelet therapy. Has not had any chest pain/chest pressure. Agree with management as above. Aspirin to be restarted tonight, resume Plavix at 24-48 hours. Patient is high cardiac risk and with resuming this soon as possible. Glycemic and antihypertensive management as above. History of Present Illness Reason for Consultation: Medical management Requesting Physician: Dr. Allen Attending Physician: Francesco Allen, History of Present Illness Mr. Hudson is a pleasant 66 yo WM with a pmhx of prostate ca s/p prostatectomy in 2019, HTN, DMT2, and HLD who was admitted under Dr. Allen's service for elective back surgery. Pt underwent L2-L4 decompression and fusion, application of I-Factor, and spinal cord monitoring today by Dr. Allen. He is currently resting comfortably in bed, reports back pain rated 5/10, denies radicular symptoms. He is accompanied by his . He denies chest pain, dyspnea, n/v/d, f/c, headache, or gu symptoms. He currently has a dillon catheter in place. Pt plans to return home upon discharge. Hospitalists were asked to see in consult for medical management. Allergies Allergy/AdvReac Type Severity Reaction Status Date / Time Sulfa (Sulfonamide Allergy Mild RASH Verified 12/16/21 07:49 Antibiotics) Home Medications Medication Instructions Recorded Confirmed Type aspirin 81 mg tablet,delayed 81 mg PO HS 07/20/19 12/16/21 History release clopidogrel 75 mg tablet (Plavix) 75 mg PO QAM 08/16/19 12/16/21 History lisinopril 10 mg tablet 10 mg PO QAM 08/16/19 12/16/21 History metformin 1,000 mg tablet 1,000 mg PO BID 08/16/19 12/16/21 History atenolol 25 mg tablet 25 mg PO HS 09/05/19 12/16/21 History diclofenac sodium 50 mg 75 mg PO BID 09/05/19 12/16/21 History tablet,delayed release gabapentin 800 mg tablet 800 mg PO 5XD 09/08/19 12/16/21 History cholecalciferol (vitamin D3) 125 125 mcg PO QAM 11/11/21 12/16/21 History mcg (5,000 unit) tablet (Vitamin D3) coenzyme Q10 100 mg capsule (Co 100 mg PO QAM 11/11/21 12/16/21 History Q-10) fenofibrate nanocrystallized 145 145 mg PO QAM 11/11/21 12/16/21 History mg tablet magnesium oxide 400 mg PO QAM 11/11/21 12/16/21 History methocarbamol 750 mg tablet 750 mg PO QID 11/11/21 12/16/21 History rosuvastatin 20 mg tablet (Crestor) 20 mg PO QAM 11/11/21 12/16/21 History turmeric 500 mg-black pepper 1 cap PO QAM 11/11/21 12/16/21 History extract 3 mg capsule vitamin E 400 unit capsule 400 unit PO QAM 11/11/21 12/16/21 History zinc 50 mg capsule 50 mg PO QAM 11/11/21 12/16/21 History oxycodone 5 mg tablet 5 mg PO Q6H PRN #30 tab 12/16/21 Rx tramadol 50 mg tablet 50 mg PO Q6H PRN #30 tab 12/16/21 Rx Patient History Medical History (Updated 12/16/21 @ 16:22 by Dorie Cleaning PA-C) Coronary artery disease mutliple cardiac stents x 12 (most recent EARL to first obtuse marginal branch 08/02/19) Diabetes NIDDM > not well controlled at present per pt Diabetic neuropathy feet GERD (gastroesophageal reflux disease) on occasion History of COVID-Sep 11, 2021 tested at [facility] > fever,, chills, lethargic, loss of smell and taste, lasted 3 days Hyperlipidemia Hypertension controlled, stable per pt Impotence Myocardial Infarction 2005, indications for cardiac cath 08/02/19 notes "NSTEMI" Obesity Osteoarthritis Prostate cancer robotic removal > Aug 2019 > no chemo or radiation Sleep apnea did not pursue treatment Urinary incontinence Surgical History (Updated 12/16/21 @ 16:15 by Dorie Cleaning PA-C) Fusion of spine L3-4 H/O eye surgery Left eye detached retina and lacerated left cornea all due to an injury H/O hand surgery LEFT SMALL FINGER TENDON REPAIR H/O heart artery stent x12 total + multiple angioplasties; most recent angioplasty and EARL x1 to first obtuse marginal branch 08/02/19 H/O umbilical hernia repair UMBILICAL History of prostatectomy 09/08/2019: Grade 3 view, MAC#3, ETT#8.0. No postop issues per anesthesia progress note. History of tonsillectomy History of tooth extraction Family History Mother , at 91yo Skin cancer History of heart valve replacement H/O heart artery stent Coronary heart disease Diabetes Father , 87yo Prostate cancer Coronary heart disease Myocardial infarction Hypertension Sister Breast cancer Son No problems noted. Son No problems noted. Son No problems noted. Grandfather (Paternal) Prostate cancer Family/Other , Paternal uncle Prostate cancer Family/Other , Paternal uncle Prostate cancer Grandfather (Maternal) Diabetes Social History Smoking Status: Never smoker Second Hand Exposure: No; Do You Dip or Chew Tobacco: No; Tobacco Cessation Education Requested by Patient: No Hx Alcohol Use: No Hx Substance Use: No Preferred Language: Rwandan Communication Ability: Effective Visual Impairment: No Limitations Hearing Ability: Normal [place] Required: No Beliefs That Will Affect Care: None marital status: Current Living Situation: Spouse current occupational status: employed 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 HEENT: Denies changes in vision and hearing. RESPIRATORY: Denies SOB, cough, wheezing. CV: Denies palpitations, CP, lower extremity edema, orthopnea, PND. GI: Denies abdominal pain, nausea, vomiting and diarrhea. : +catheter. Denies dysuria and urinary frequency, urgency, hesitancy. MUSCULOSKELETAL: +back pain. SKIN: Denies rash and pruritus. NEUROLOGICAL: Denies headache, syncope, focal weakness, numbness, tingling. PSYCHIATRIC: Denies recent changes in mood. Denies anxiety and depression. Physical Exam Physical Exam: GENERAL: 66 yo Well-developed, well-nourished WM. NAD. LUNGS: Clear to auscultation bilaterally. No accessory muscle use. No W/R/R. CARDIOVASCULAR: Regular rate and rhythm. No M/G/R. No JVD. ABDOMEN: Soft, non-tender and non-distended. BS normal x 4 quad. EXTREMITIES: No edema. Non-tender. Peripheral pulses +2/4. NEUROLOGIC: A&O x3. No focal neurological deficits. PSYCHIATRIC: Cooperative. Appropriate mood and affect. SKIN: Warm, dry, intact. Back incision dressed, KATE drain visualized. Results & Data Results & Data ([facility]) Vital Signs (Past 12 Hours) Vital Signs Temp Pulse Pulse Resp BP Pulse Ox 12/16/21 15:16 37 C 72 19 132/83 96 12/16/21 14:15 36.5 C 71 17 136/82 94 12/16/21 13:45 37 C 77 17 154/93 H 94 12/16/21 13:20 36.9 C 79 16 154/85 H 97 12/16/21 13:10 74 16 145/88 H 98 12/16/21 13:00 76 16 132/84 96 12/16/21 12:50 74 16 140/74 98 12/16/21 12:40 71 15 143/79 H 98 12/16/21 12:32 36.3 C L 77 15 146/84 H 92 12/16/21 08:03 36.8 C 62 20 171/90 H 95 12/16/21 08:00 37 C 83 18 146/83 H 97 Laboratory Results Preop labs drawn 11/18/21 CBC: wbc 6.97, hgb 12.9, hct 39.5, plt 288 CHEMISTRY: sodium 140, pot 4.7, cl 104, co2 30, bun 15, creat 0.81, glucose 193 ha1c = 9.6% urine neg for infection CXR=no acute chest disease EKG=normal sinus rhythm, 68 bpm PG Care Time/CCT Total # of Minutes Spent Total Time Spent with Patient: Total time spent is greater than 50% in coordination of care (as documented) at patient's floor/unit and/or counseling patient: Coding Level of Care Code 14723 Inpt Consult Level 4 Diagnoses Status post lumbar spine surgery for decompression of spinal cord Z98.890 Diabetes mellitus type 2, uncontrolled E11.65 Essential hypertension I10 Mixed hyperlipidemia E78.2 Diabetic neuropathy E11.40 Prostate cancer C61 History of myocardial infarction I25.2
[2021-12-16] MEDS: INSULIN ASPART PER UNIT SC SCH ×2 (18:00→21:26)
[2021-12-16] MEDS: ceFAZolin 2000MG 2,000 MG/15 ML SYR IV SCH (18:33)
[2021-12-16] MEDS: ASPIRIN 81 MG ECTAB PO SCH (21:07)
[2021-12-16] MEDS: DOCUSATE SODIUM 100 MG CAP PO SCH (21:07)
[2021-12-16] MEDS: DOCUSATE SODIUM/SENNA 50/8.6MG TAB PO SCH (21:07)
[2021-12-16] MEDS: GABAPENTIN 800 MG TAB PO SCH (21:08)
[2021-12-16] MEDS: ATENOLOL 25 MG TABLET PO SCH (21:09)
[2021-12-16] MEDS: oxyCODONE HCL IR 5 MG TAB (IMMEDIATE RELEASE) PO PRN (21:21)
[2021-12-17] MEDS: INSULIN ASPART PER UNIT SC SCH ×6 (00:04→21:31)
[2021-12-17] MEDS: ceFAZolin 2000MG 2,000 MG/15 ML SYR IV SCH (02:23)
[2021-12-17] MEDS: oxyCODONE HCL IR 5 MG TAB (IMMEDIATE RELEASE) PO PRN ×4 (03:03→18:01)
[2021-12-17] MEDS: POLYETHYLENE (MIRALAX) 17 GM PACK PO SCH ×4 (05:53→23:08)
[2021-12-17 08:04] LABS: Basophils # (auto) 0.01 K/uL (0-0.2); Basophils % (auto) 0.1 %; Eosinophils # (auto) 0.01 K/uL (0-0.5); Eosinophils % (auto) 0.1 %; Hematocrit (blood only) 32.5 % (42-52); Hemoglobin 10.6 g/dL (14.0-18.0); Immature Granulocytes # (auto) 0.04 K/uL (0.00-0.02); Immature Granulocytes % (auto) 0.3 %; Lymphocytes % (auto) 10.9 %; Mean Corpuscular Hemoglobin 30.5 pg (25-34); Mean Corpuscular Hgb Conc 32.6 g/dL (32-36); Mean Corpuscular Volume 93.7 fL (80-100); Mean Platelet Volume 9.3 fL (7.4-10.4); Monocytes # (auto) 0.93 K/uL (0.11-0.59); Monocytes % (auto) 7.8 %; Neutrophils # (auto) 9.65 K/uL (1.4-6.5); Neutrophils % (auto) 80.8 %; Platelet Count 209 K/uL (130-400); RDW Coefficient of Variation 13.5 % (11.5-14.5); Red Blood Count 3.47 M/uL (4.7-6.1); White Blood Count 11.94 K/uL (4.8-10.8)
[2021-12-17 08:25] LABS: BUN Creatinine Ratio 17.6 (10-20); Calcium 8.7 mg/dl (8.5-10.1); Creatinine Clr Calc Pharmacy 103.9 ml/min; Est GFR (African American) 105.2 ml/min; Est GFR (Non-African American) 90.8 ml/min; Potassium 3.9 mmol/L (3.5-5.1)
[2021-12-17] MEDS ORDERED: NON-FORMULARY MEDICATION (Coenzyme Q10 [Co Q-10] 100 mg Capsule) PO SCH (09:00)
[2021-12-17] MEDS ORDERED: INSULIN HUMAN NPH SC ONE (09:00)
[2021-12-17] MEDS: ZINC SULFATE 220 MG CAPSULE PO SCH (09:31)
[2021-12-17] MEDS: GABAPENTIN 800 MG TAB PO SCH ×3 (09:31→21:29)
[2021-12-17] MEDS: ROSUVASTATIN CALCIUM 20 MG TAB PO SCH (09:31)
[2021-12-17] MEDS: TOCOPHERYL, DL-ALPHA 400 UNITS 180 MG CAP PO SCH (09:31)
[2021-12-17] MEDS: CHOLECALCIFEROL 5,000 UNITS 125 MCG TAB PO SCH (09:32)
[2021-12-17] MEDS: DOCUSATE SODIUM 100 MG CAP PO SCH ×2 (09:32→21:30)
[2021-12-17] MEDS: MAGNESIUM OXIDE 400 MG TAB PO SCH (09:32)
[2021-12-17] MEDS: CLOPIDOGREL BISULFATE 75 MG TAB PO SCH (09:32)
[2021-12-17] MEDS: FENOFIBRATE NANOCRYSTALLIZED 145 MG TABLET PO SCH (09:32)
[2021-12-17] MEDS: lisinopril 10 MG TAB PO SCH (09:33)
[2021-12-17] MEDS: dexAMETHasone 6 MG in SYRINGE 0 ML IV SCH (09:33)
--- NOTE | 2021-12-17 09:43 | Hospitalist Progress Note ---
Date of Service December 17, 2021 Assessment & Plan (1) Status post lumbar spine surgery for decompression of spinal cord: Plan: - POD#1 lumbar decompression fusion by Dr. Allen - Pain control, pre/post op antibiotics as per primary service - Added stool softeners if not already done so to avoid constipation - Dillon catheter to be removed today - Activity per Dr. Allen, recommend PT/OT eval today - Recommend utilizing incentive spirometer q1h while awake for atelectasis/pna prevention (2) Diabetes mellitus type 2, uncontrolled: Plan: - Recently started on Lantus 10 units at HS by PCP as of last note 12/12/21 - Takes Metformin at home which has been placed on hold - Add sliding scale insulin w/ meals and accuchecks AC and HS - Glycemic management consult will be ordered as pt will be receiving IV Decadron - Diabetic diet (3) Essential hypertension: Plan: - Atenolol and Lisinopril resumed (4) Mixed hyperlipidemia: Plan: - Continue Crestor, CoQ10, and Fenofibrate (5) Diabetic neuropathy: Plan: - Resume Gabapentin (6) Prostate cancer: Plan: - In remission, s/p prostatectomy, no chemo or radiation (7) History of myocardial infarction: Plan: - NSTEMI prompting cardiac catheterization in Jul 2019 - Angioplasty and EARL of the obtuse marginal branch performed - Prior h/o "20 stents" -- due to high cardiac risk, ASA resumed on 12/16 at HS and Plavix resumed this AM Plan: Recommendations as outlined above. Will continue to follow along. Above plan of care to be d/w Dr. Samayoa. Admission and Anticipated Discharge Date Admission Date: December 16, 2021 Subjective Pt seen on daily rounds this morning. Resting comfortably on edge of bed eating breakfast. Reports back pain is adequately controlled. Denies cp, dyspnea. Catheter has not yet been removed. Review of Systems Review of Systems: CONSTITUTIONAL: Denies weight loss/gain, fever and chills, fatigue, malaise, generalized weakness. HEENT: Denies changes in vision and hearing. RESPIRATORY: Denies SOB, cough, wheezing. CV: Denies palpitations, CP, lower extremity edema, orthopnea, PND. GI: Denies abdominal pain, nausea, vomiting and diarrhea. : +catheter. Denies dysuria and urinary frequency, urgency, hesitancy. MUSCULOSKELETAL: +back pain. SKIN: Denies rash and pruritus. NEUROLOGICAL: Denies headache, syncope, focal weakness, numbness, tingling. PSYCHIATRIC: Denies recent changes in mood. Denies anxiety and depression. Physical Exam Physical Exam: GENERAL: 66 yo Well-developed, well-nourished WM. NAD. LUNGS: Clear to auscultation bilaterally. No accessory muscle use. No W/R/R. CARDIOVASCULAR: Regular rate and rhythm. No M/G/R. No JVD. ABDOMEN: Soft, non-tender and non-distended. BS normal x 4 quad. : dillon in place EXTREMITIES: No edema. Non-tender. Peripheral pulses +2/4. NEUROLOGIC: A&O x3. No focal neurological deficits. PSYCHIATRIC: Cooperative. Appropriate mood and affect. SKIN: Warm, dry, intact. Back incision dressed. Results & Data Results & Data ([facility]) Vital Signs (Past 12 Hours) Vital Signs Temp Pulse Resp BP Pulse Ox 12/17/21 07:48 36.7 C 78 16 115/66 94 12/17/21 02:18 37.5 C 79 16 105/62 93 12/16/21 22:35 37.7 C H 86 16 109/58 L 97 Laboratory Results 12/17/21 07:44 12/17/21 07:44 PG Care Time/CCT Total # of Minutes Spent Total Time Spent with Patient: Total time spent is greater than 50% in coordination of care (as documented) at patient's floor/unit and/or counseling patient: Coding Level of Care Code 78358 Subseq Hosp Care Lvl 2 Diagnoses Status post lumbar spine surgery for decompression of spinal cord Z98.890 Diabetes mellitus type 2, uncontrolled E11.65 Essential hypertension I10 Mixed hyperlipidemia E78.2 Diabetic neuropathy E11.40 Prostate cancer C61 History of myocardial infarction I25.2
--- NOTE | 2021-12-17 12:27 | Orthopedic Progress Note ---
Date of Service December 17, 2021 Assessment & Plan (1) Neurogenic claudication due to lumbar spinal stenosis: Plan: This time we will continue physical therapy monitor his KATE output hopefully discharge home in the next few days. Admission and Anticipated Discharge Date Admission Date: December 16, 2021 Subjective Back pain controlled leg symptoms markedly improved Physical Exam Physical Exam: Patient sitting up at the bedside. Is good strength testing. Appears comfortable. Results & Data ([facility]) Vital Signs (Past 12 Hours) Vital Signs Temp Pulse Resp BP Pulse Ox 12/17/21 07:48 36.7 C 78 16 115/66 94 12/17/21 02:18 37.5 C 79 16 105/62 93
--- NOTE | 2021-12-17 14:51 | Pharmacy Report ---
Pharmacy Glycemic Short Note 2 - Date of Service December 17, 2021 - Glycemic Short BSG Results (Last 24 hours): 12/16/21 12/16/21 12/16/21 17:14 17:17 20:21 Glucose POC Glucose 308 H* 244 H 212 H 12/16/21 12/17/21 12/17/21 23:52 04:07 07:44 Glucose 195 H POC Glucose 132 H 132 H 12/17/21 12/17/21 08:11 12:11 Glucose POC Glucose 205 H 213 H OUTPATIENT ANTIDIABETIC REGIMEN: * Metformin 1000 mg PO BIDM * HbA1c: 9.6% (11/18/21) ASSESSMENT: 12/17: * Patient received total 49 units of insulin yesterday; 30 units basal (NPH) + 19 units bolus * Fasting BSG = 205 mg/dl today. Per doctor's note, patient had just started on Lantus 10 units SQ HS at home. Added Lantus dose scale at HS based on BSG. * Patient is on Dexamethasone 6 mg IV q24h. NPH insulin 35 units given this AM (slight increase from yesterday due to Dex dose increase from 4 to 6 mg IV) to prevent steroid induced hyperglycemia. * Novolog CF/CR tightened this AM. 12/16/21 * DS is a 66 year old male POD #0 s/p L2-4 decompression/fusion * Received 4 mg IV dexamethasone in OR * Preoperative BSG of 182, postoperative BSG of 231 mg/dL, HbA1c of 9.6% suggests poor outpatient glycemic control * Will use aggressive Novolog parameters and give dose of NPH now to help cover steroids * Dexamethasone 6 mg IV daily ordered x 3 days, will need to reassess NPH tomorrow PLAN FOR INPATIENT GLYCEMIC CONTROL: * Hold outpatient oral diabetes medications * Basal insulin * NPH 35 units SC x 1 this AM * Reassess in AM * Bolus insulin: tightened CF/CR * NovoLog per scale ACHS or Q6hrs while NPO * Goal Range: Low 110 mg/dL - High 140 mg/dL * Correction Factor: 15 mg/dL/unit * Nutritional / Prandial insulin per carb ratio of 1 unit per 5 grams CHO consumed
[2021-12-17] MEDS ORDERED: INSULIN GLARGINE SOLOSTAR 100 UNITS/ML 3 ML PEN SC SCH (21:00)
[2021-12-17] MEDS: ATENOLOL 25 MG TABLET PO SCH (21:30)
[2021-12-17] MEDS: ASPIRIN 81 MG ECTAB PO SCH (21:30)
[2021-12-17] MEDS: DOCUSATE SODIUM/SENNA 50/8.6MG TAB PO SCH (21:30)
[2021-12-18] MEDS: oxyCODONE HCL IR 5 MG TAB (IMMEDIATE RELEASE) PO PRN ×3 (00:35→18:05)
[2021-12-18] MEDS: POLYETHYLENE (MIRALAX) 17 GM PACK PO SCH ×3 (05:25→18:18)
[2021-12-18 06:29] LABS: Hematocrit (blood only) 27.7 % (42-52); Hemoglobin 9.1 g/dL (14.0-18.0); Mean Corpuscular Hemoglobin 30.7 pg (25-34); Mean Corpuscular Hgb Conc 32.9 g/dL (32-36); Mean Corpuscular Volume 93.6 fL (80-100); Mean Platelet Volume 9.6 fL (7.4-10.4); Platelet Count 196 K/uL (130-400); RDW Coefficient of Variation 13.3 % (11.5-14.5); Red Blood Count 2.96 M/uL (4.7-6.1)
[2021-12-18 06:43] LABS: Albumin Globulin Ratio 1.5 (0.9-2); Albumin Level 3.6 gm/dl (3.4-5.0); BUN Creatinine Ratio 23.7 (10-20); Bilirubin,Total 0.4 mg/dl (0.2-1.0); Calcium 8.7 mg/dl (8.5-10.1); Chol HDL Ratio 3.4 (0-5); Creatinine Clr Calc Pharmacy 91.1 ml/min; Est GFR (African American) 93.9 ml/min; Globulin 2.4 gm/dl (2.5-4.0); Potassium 3.8 mmol/L (3.5-5.1)
[2021-12-18] MEDS ORDERED: INSULIN HUMAN NPH SC SCH (09:00)
[2021-12-18] MEDS: INSULIN ASPART PER UNIT SC SCH ×2 (09:25→13:13)
[2021-12-18] MEDS: CHOLECALCIFEROL 5,000 UNITS 125 MCG TAB PO SCH (09:26)
[2021-12-18] MEDS: CLOPIDOGREL BISULFATE 75 MG TAB PO SCH (09:26)
[2021-12-18] MEDS: ROSUVASTATIN CALCIUM 20 MG TAB PO SCH (09:27)
[2021-12-18] MEDS: MAGNESIUM OXIDE 400 MG TAB PO SCH (09:27)
[2021-12-18] MEDS: FENOFIBRATE NANOCRYSTALLIZED 145 MG TABLET PO SCH (09:27)
[2021-12-18] MEDS: lisinopril 10 MG TAB PO SCH (09:27)
[2021-12-18] MEDS: TOCOPHERYL, DL-ALPHA 400 UNITS 180 MG CAP PO SCH (09:27)
[2021-12-18] MEDS: ZINC SULFATE 220 MG CAPSULE PO SCH (09:27)
[2021-12-18] MEDS: dexAMETHasone 6 MG in SYRINGE 0 ML IV SCH (09:28)
[2021-12-18] MEDS: DOCUSATE SODIUM 100 MG CAP PO SCH (09:28)
[2021-12-18] MEDS: GABAPENTIN 800 MG TAB PO SCH ×2 (09:28→14:59)
--- NOTE | 2021-12-18 10:35 | Discharge Summary ---
Date of Service December 18, 2021 Admission HPI Per Admitting Provider 66-year-old male who presents with chronic persistent back and leg pain after failing course of nonoperative care is here for surgical invention. Principal Diagnosis Lumbar spinal stenosis with radiculopathy Discharge Data Allergies Allergy/AdvReac Type Severity Reaction Status Date / Time Sulfa (Sulfonamide Allergy Mild RASH Verified 12/16/21 07:49 Antibiotics) Consultations 12/16/21 13:23 Consult Hospitalist Routine Procedures Performed Operation Date: 12/03/21 07:00 <No data on this case meets the specified criteria> Operation Date: 12/16/21 09:05 Actual Procedures p L2-L4 Decompression and Fusion, Application of I-Factor, Spinal Cord Monitoring(Not Applicable) - Francesco Allen DO s L4-L5 Hardware Removal, (Not Applicable) - Francesco Allen DO Ordered Studies 12/16/21 09:05 [place] lumbar spine 2-3V Routine Hospital Course (1) Neurogenic claudication due to lumbar spinal stenosis: Patient with lumbar decompression fusion tolerated so was taken orthopedic for postoperative. Postop day 1 is up and ambulating progressed to postop day #2. Excellent strength testing. KATE drain decreasing probably. Socially discharged home. Discharge orders instructions from the chart for further view. Total Time Total Time Spent Total Time Spent (In Minutes): 20 minutes Discharge Plan Discharge Items Patient Disposition: Home - Self-Care Reason For Visit: Intervertebral Disc Disorders with Radiculopathy Discharge Diagnosis: Lumbar spinal stenosis with radiculopathy Activity: As commented below Non-emergency contact: Primary Care Provider Call non-emergency contact if: you have any medication questions Follow-up/Referrals: Julius Sy [Primary Care Provider] - Diet: Regular Addtl Attending Provider Instructions: ACTIVITY RECOMMENDATIONS: SELF CARE INSTRUCTIONS AFTER THORACIC/LUMBAR FUSIONS 1. You may walk to your tolerance. It is good exercise for your legs and back. Expect some back and intermittent leg aches and pains. 2. You may perform "counter-top" level activities (make a sandwich, cuba with a project, etc.). 3. No bending or lifting of more than 10 pounds or back twisting of any nature (roll like a log when turning in bed). 4. You may ride in a car for 20-30 minutes at a time. No driving until after your first visit with your doctor. 5. Frequent changes of position and restricting sitting to 30 minutes at a time will help limit the amount of back spasms and stiffness you may experience. 6. You may discontinue the use of ambulatory aids (cane, crutches, etc.) once y our strength and confidence allow. 7. You may hospital plan administrator the shower and let water strike your incision when you arrive home at least once daily. Do not take a tub bath, sit in a hot tub or go into a swimming pool until after your first recheck in the office. SPECIAL CARE INSTRUCTIONS: VERY IMPORTANT TO READ AND REVIEW A. Your surgical incision has been closed with a cosmetic suture under the skin that will dissolve in about 6 weeks. In 14 days, you can use a pair of clean scissors and cut the suture that is left outside of the skin at the ends of your incision. 1. The small skin tapes can be removed 7 days after surgery if they have not fallen off by that point. 2. You may keep the wound open to air as much as possible to promote healing after post-op day number 5 unless told otherwise by your doctor. 3. If you think the wound looks like it is becoming infected (redness or worsening drainage) and/or you are experiencing fever, chill or worsening back pain and muscle spasms, contact the office so that we may evaluate you as soon as possible. B. Complications are uncommon, but please contact us if you have any signs or symptoms of: 1. wound infection (fever higher than 102.5 degrees F, redness, separation of wound, drainage, or increasing pain from the incision) 2. blood clots in legs (pain, swelling, redness and warmth in legs) 3. urinary tract infection (fever higher than 102.5 degrees F, burning upon urination or increased frequency of urination) 4. nerve problems (inability to walk on your toes or heels, numbness, loss of bowel or bladder control) 5. any other symptoms that concern you C. Please call the office at if you have any concerns or questions about your operation or recovery. D. No smoking! Smoking drastically decreases the chance of a solid fusion. E. Do not take any anti-inflammatory medications (Indocin, Advil, Motrin, Aspirin, Naprosyn, etc.) as these may inhibit the chance of a solid fusion. Tylenol is okay to take for pain. MANAGING PAIN AFTER SPINAL SURGERY 1. Narcotic medication is intended for short-term use and will be provided for surgical pain. Surgical pain usually lasts for a period of 4-6 weeks. Narcotic medication includes Percocet, Vicodin, Darvocet, Tylenol #3 or Lortab. 2. Longer-term pain is more appropriately treated with non-narcotic medication such as Tylenol ES. 3. Muscle spasm is not appropriately treated with narcotics. Muscle relaxers such as Soma, Flexeril or Skelaxin can be used along with Tylenol ES. 4. Remember that we all live with some "aches and pains". This is not unusual or uncommon after an injury or as we get older. a. Back pain is expected and may include muscle spasms for 4 to 6 weeks after surgery. The pain should gradually improve. If the pain worsens for no apparent reason, please contact the office. b. Intermittent leg pain may also be experienced and should not be concerned about unless it worsens for no apparent reason. If so, please contact the office. 5. We will provide appropriate medication within the normal guidelines of their prescribed use. We will also be very cautious and aware of potential abuse and extended duration of patients' medication needs. a. Pain medications are for your comfort and to assist with sleep and rest so that the tissue can heal. They are not provided in order to return to normal activity and should not be used through the day. To do so or worsening pain at night can result from ongoing tissue damage and development of tolerance to the prescribed medicine. 6. Please allow 2-3 days to process refills. Prescriptions will not be mailed but must be picked up at the office. FOLLOW UP VISIT: Keep your scheduled follow-up appointment. Any questions, please call the office at . Pending Studies at Discharge: No Stand-Alone Forms: [employer], Smoking Cessation Medications and DC Order Prescriptions: New tramadol 50 mg tablet 50 mg PO Q6H PRN (Reason: pain, moderate) Qty: 30 RF: 0 oxycodone 5 mg tablet 5 mg PO Q6H PRN (Reason: pain, severe) Qty: 30 RF: 0 Continued lisinopril 10 mg tablet 10 mg PO QAM RF: 0 clopidogrel [Plavix] 75 mg tablet 75 mg PO QAM RF: 0 metformin 1,000 mg tablet 1,000 mg PO BID RF: 0 aspirin 81 mg tablet,delayed release (DR/EC) 81 mg PO HS RF: 0 atenolol 25 mg tablet 25 mg PO HS RF: 0 diclofenac sodium 50 mg Tablet,Delayed Release (Dr/Ec) 75 mg PO BID RF: 0 gabapentin 800 mg Tablet 800 mg PO 5XD RF: 0 methocarbamol 750 mg Tablet 750 mg PO QID RF: 0 vitamin E 400 unit Capsule 400 unit PO QAM RF: 0 coenzyme Q10 [Co Q-10] 100 mg Capsule 100 mg PO QAM RF: 0 rosuvastatin [Crestor] 20 mg Tablet 20 mg PO QAM RF: 0 zinc 50 mg Capsule 50 mg PO QAM RF: 0 fenofibrate nanocrystallized 145 mg Tablet 145 mg PO QAM RF: 0 cholecalciferol (vitamin D3) [Vitamin D3] 125 mcg (5,000 unit) Tablet 125 mcg PO QAM RF: 0 turmeric-turmeric ext-pepper 500-3 mg Capsule 1 cap PO QAM RF: 0 magnesium oxide 400 mg magnesium Tablet 400 mg PO QAM RF: 0 Discharge Orders: Discharge Order (Routine); Ordered 12/18/21 Ordered By: Francesco Allen Admission Data Admit Date/Time: 12/16/21 12:21 Attending Provider: Francesco Allen Admit Provider: Francesco Allen Primary Care Provider: Julius Sy Other Providers: Piter Mann
--- NOTE | 2021-12-18 12:03 | Hospitalist Progress Note ---
Date of Service December 18, 2021 Assessment & Plan (1) Status post lumbar spine surgery for decompression of spinal cord: Plan: - POD#2 lumbar decompression fusion by Dr. Allen - Pain control, pre/post op antibiotics as per primary service - Added stool softeners to avoid constipation - Activity per Dr. Allen, PT/OT - Recommend utilizing incentive spirometer q1h while awake for atelectasis/pna prevention (2) Acute blood loss anemia: Plan: - Secondary to surgery + IV fluids given pre/post op - Hgb 9.1 this AM, will initiate FeSO4 replacement x 60 days, did agency legal counsel that this can cause blackened appearance of stool and constipation (3) Diabetes mellitus type 2, uncontrolled: Plan: - Recently started on Lantus 10 units at HS by PCP as of last note 12/12/21 - Takes Metformin at home which has been placed on hold - Sliding scale insulin w/ meals and accuchecks AC and HS - Glycemic management consult will be ordered as pt will be receiving IV Decadron - Diabetic diet (4) Essential hypertension: Plan: - Atenolol and Lisinopril resumed (5) Mixed hyperlipidemia: Plan: - Continue Crestor, CoQ10, and Fenofibrate - Updated lipid panel drawn this AM per PCP request (6) Diabetic neuropathy: Plan: - Resume Gabapentin (7) Prostate cancer: Plan: - In remission, s/p prostatectomy, no chemo or radiation (8) History of myocardial infarction: Plan: - NSTEMI prompting cardiac catheterization in Jul 2019 - Angioplasty and EARL of the obtuse marginal branch performed - Prior h/o "20 stents" -- continue ASA/Plavix Plan: Interventions as outlined above. Patient is overall stable from a medical standpoint. I have no further recommendations at this time. Medicine will sign off, please feel free to notify of any issues warranting that the patient be seen. Will continue to do daily chart checks. Thank you for allowing us to participate in Mr. Hudson's care. Plan d/w Dr. Mann. Admission and Anticipated Discharge Date Admission Date: December 16, 2021 Subjective Patient seen on daily rounds this morning. Pt is resting comfortably on edge of bed, offers no new complaints/concerns. Back pain is mostly sore with certain movements but improves when up walking. Denies radicular symptoms. Pain is adequately controlled with meds. No BM since surgery but feels that he will have one soon. He denies cp or dyspnea. No issues with voiding since removal of catheter. Review of Systems Review of Systems: CONSTITUTIONAL: Denies weight loss/gain, fever and chills, fatigue, malaise, generalized weakness. HEENT: Denies changes in vision and hearing. RESPIRATORY: Denies SOB, cough, wheezing. CV: Denies palpitations, CP, lower extremity edema, orthopnea, PND. GI: Denies abdominal pain, nausea, vomiting and diarrhea. : +catheter. Denies dysuria and urinary frequency, urgency, hesitancy. MUSCULOSKELETAL: +back pain. SKIN: Denies rash and pruritus. NEUROLOGICAL: Denies headache, syncope, focal weakness, numbness, tingling. PSYCHIATRIC: Denies recent changes in mood. Denies anxiety and depression. Physical Exam Physical Exam: GENERAL: 66 yo Well-developed, well-nourished WM. NAD. LUNGS: Clear to auscultation bilaterally. No accessory muscle use. No W/R/R. CARDIOVASCULAR: Regular rate and rhythm. No M/G/R. No JVD. ABDOMEN: Soft, non-tender and non-distended. BS normal x 4 quad. EXTREMITIES: No edema. Non-tender. Peripheral pulses +2/4. NEUROLOGIC: A&O x3. No focal neurological deficits. PSYCHIATRIC: Cooperative. Appropriate mood and affect. SKIN: Warm, dry, intact. Back incision dressed-KATE drain present. Results & Data Results & Data ([facility]) Vital Signs (Past 12 Hours) Vital Signs Temp Pulse Pulse Resp BP Pulse Ox 12/18/21 11:20 36.4 C 79 74 16 140/85 95 12/18/21 08:41 36.4 C 74 16 140/85 95 Laboratory Results 12/18/21 05:42 12/18/21 05:42 PG Care Time/CCT Total # of Minutes Spent Total Time Spent with Patient: Total time spent is greater than 50% in coordination of care (as documented) at patient's floor/unit and/or counseling patient: Coding Level of Care Code 90815 Subseq Hosp Care Lvl 2 Diagnoses Status post lumbar spine surgery for decompression of spinal cord Z98.890 Diabetes mellitus type 2, uncontrolled E11.65 Essential hypertension I10 Mixed hyperlipidemia E78.2 Diabetic neuropathy E11.40 Prostate cancer C61 History of myocardial infarction I25.2 Acute blood loss anemia D62
--- NOTE | 2021-12-18 14:14 | Pharmacy Report ---
Pharmacy Glycemic Short Note 2 - Date of Service December 18, 2021 - Glycemic Short BSG Results (Last 24 hours): 12/17/21 12/17/21 12/18/21 17:02 20:40 05:42 Glucose 163 H POC Glucose 218 H 164 H 12/18/21 12/18/21 08:31 11:47 Glucose POC Glucose 171 H 203 H OUTPATIENT ANTIDIABETIC REGIMEN: * Metformin 1000 mg PO BIDM * HbA1c: 9.6% (11/18/21) ASSESSMENT: 12/18/21: * Bao received 96 units of SQ insulin yesterday (45 units NPH + 17 units Lantus + 44 units bolus) * Fasting BSG is trending downward. Will continue Lantus per BSG scale. * Post prandial BSGs were elevated yesterday. Increase NPH and tighten carb ratio. * Patient continues on dexamethasone 6 mg IV daily 12/17: * Patient received total 49 units of insulin yesterday; 30 units basal (NPH) + 19 units bolus * Fasting BSG = 205 mg/dl today. Per doctor's note, patient had just started on Lantus 10 units SQ HS at home. Added Lantus dose scale at HS based on BSG. * Patient is on Dexamethasone 6 mg IV q24h. NPH insulin 35 units given this AM (slight increase from yesterday due to Dex dose increase from 4 to 6 mg IV) to prevent steroid induced hyperglycemia. * Novolog CF/CR tightened this AM. 12/16/21 * DS is a 66 year old male POD #0 s/p L2-4 decompression/fusion * Received 4 mg IV dexamethasone in OR * Preoperative BSG of 182, postoperative BSG of 231 mg/dL, HbA1c of 9.6% suggests poor outpatient glycemic control * Will use aggressive Novolog parameters and give dose of NPH now to help cover steroids * Dexamethasone 6 mg IV daily ordered x 3 days, will need to reassess NPH tomorrow PLAN FOR INPATIENT GLYCEMIC CONTROL: * Hold outpatient oral diabetes medications * Basal insulin * NPH 45 units SC qAM * Lantus 10-17 units SQ HS (17 units for BSG 150 mg/dL or more) * Bolus insulin: tightened CF/CR * NovoLog per scale ACHS or Q6hrs while NPO * Goal Range: Low 110 mg/dL - High 140 mg/dL * Correction Factor: 15 mg/dL/unit * Nutritional / Prandial insulin per carb ratio of 1 unit per 4 grams CHO consumed
[2021-12-18] MEDS ORDERED: FERROUS SULFATE 325 MG TAB PO SCH (17:00)
== END 2021-12-18 18:26 | disposition home or self-care (01) | DRG 454 ==
LOC: ASU 07:39 → 3N 12:21